=== PATIENT | female | born 1980 | race Caucasian/White ===

== ENCOUNTER 2025-06-10 10:29 | Outpatient (OUT) | payer OTHER, SELFPAY ==
[2025-06-10 10:58] LABS: Hematocrit 47.9 % (36.0-48.0); Hemoglobin 16.2 g/dL (12.0-16.0); Immature Granulocytes Abs Auto 0.02 10^3/uL (0.00-0.03); Immature Granulocytes Pct Auto 0.2 % (0.0-0.5); Lymphocytes Absolute Auto 2.2 10^3/uL (1.2-3.8); Mean Corpuscular HGB Conc 33.8 g/dL (29.9-35.2); Mean Corpuscular Hemoglobin 32.2 pg (26.7-34.0); Mean Corpuscular Volume 95.2 fL (81.0-99.0); Platelet Count 287 10^3/uL (150-450); Red Blood Count 5.03 10^6/uL (4.20-5.40); White Blood Count 8.2 10^3/uL (4.0-11.0)
[2025-06-10 11:09] LABS: Glucose Urine UA >=1000 mg/dL (NEGATIVE)
[2025-06-10 11:34] LABS: Cast Seen? NONE SEEN #/LPF (NONE SEEN); Crystals Seen? None Seen #/HPF (None Seen)
[2025-06-10 11:46] LABS: Alanine Aminotransferase 21 U/L (14-59); Albumin Globulin Ratio 1.1; Albumin Level 4.0 g/dL (3.4-5.0); Alkaline Phosphatase 132 U/L (46-116); Anion Gap 11.2; Aspartate Amino Transferase 12 U/L (15-37); Blood Urea Nitrogen 3.0 mg/dL (7.0-18.0); Calcium 9.6 mg/dL (8.5-10.1); Carbon Dioxide 30.5 mmol/L (21.0-32.0); Chloride 102 mmol/L (98-107); Cholesterol 247 mg/dL (<=200); Estimated GFR (African America >60 (>=60 mL/min/1.73m^2); Estimated GFR (Non-African Ame >60 (>=60 mL/min/1.73m^2); Free T3 1.74 pg/mL (2.18-3.98); Globulin 3.6 g/dL; Glucose 144 mg/dL (74-106); HDL Cholesterol 48 mg/dL (40-60); Potassium 3.7 mmol/L (3.5-5.1); Sodium 140 mmol/L (136-145); Thyroid Stimulating Hormone 0.678 uIU/mL (0.358-3.740); Total Protein 7.6 g/dL (6.4-8.2); Triglycerides 179 mg/dL (<=150); VLDL CHOLESTEROL 35.8 mg/dL
== END 2025-06-10 10:30 | disposition home or self-care (01) ==
LOC: LAB 10:33
PROVIDERS: PCP Family Medicine; Visit Provider Family Medicine
DX: Z00.00 Encounter for general adult medical examination without abnormal findings (principal)
CPT/HCPCS: 36415; 80053; 80061; 81001; 82306; 83036; 84436; 84443; 84481; 85025; 87086

== ENCOUNTER 2025-06-12 17:02 | Outpatient (OUT) | payer OTHER, SELFPAY ==
--- OUTSIDE RECORDS SUMMARY | 2025-06-06 10:45 | XMS_ITS ---
Author Organization [facility] in [place] Address [address] [place] [address] Care Team Providers Care Obstetrical Nurse Name Role Phone Tay Kaur Primary Care Provider Allergies Allergen (clinical drug ingredient) Drug/Non Drug Allergy documented on EMR Reaction Allergy Type Onset Date Status amoxicillin Amoxicillin vomiting Drug Allergy Active REASON FOR VISIT new patient- patient has concerns about med list Medications Medication SIG (Take, Route, Frequency, Duration) Notes Start Date End Date Status Methocarbamol 750 MG 1 tablet Orally 4 times a d ay ActiveTrulicity 3 MG/0.5MLas directed SubcutaneousActivemetFORMIN HCl 1000 MG1 tablet with a meal Orally twice a dayActiveDivalproex Sodium 250 MGas directed Orally twice a dayActiveMetoprolol Tartrate 50 MG1 tablet with food Orally Twice a day; Duration: 90 daysActiveUbrelvy 100 mg 100 mgAs directed Orally -Active OXcarbazepine 600 MG1 tablet Orally dailyActiveQulipta 60mgOne daily Orally DailyActiveAfrin Nasal SprayActiveOmeprazole 20 MG1 capsule 1/2 to 1 hour before morning meal Orally Once a dayActiveQUEtiapine Fumarate 50 MG1 tablet at bedtime Orally Once a day; Duration: 90 daysActiveQUEtiapine Fumarate 400 MG1 tablet Orally Once a day; Duration: 90 daysActivePotassium Chloride ER 10 MEQ1 tablet with food Orally Twice a day; Duration: 90 daysActiveCyanocobalamin 1000 MCG1 tablet Orally Once a day; Duration: 90 daysActiveVitamin D2 50 MCG (1999 UT)1 tablet Orally Once a day; Duration: 90 daysActiveDiclofenac Sodium 75 MG1 tablet as needed Orally Twice a day; Duration: 30 days5ActiveMirtazapine 30 MG 1.5 tablet at bedtime Orally Once a day; Duration: 90 daysActiveFexofenadine- Pseudoephed ER 180-240 MG1 tablet Orally Once a day; Duration: 90 days06/06/2025 ActivelamoTRIgine 200 MG1 tablet Orally Twice a day; Duration: 90 daysActive AllegraActiveJardiance 25 MG1 tablet Orally Once a dayActiveFLUoxetine HCl 40 MG 1 capsule Orally Once a day; Duration: 90 daysActiverOPINIRole HCl ER 8 MG1 tablet Orally Once a day; Duration: 90 daysActivebusPIRone HCl 30 MG1 tablet Orally Twice a day; Duration: 90 daysActiveGlimepiride 4 MG1 tablet with breakfast or the first main meal of the day Orally Once a dayActive Social History Tobacco Use: Social History Observation Description Date Details (start date - stop date) Former Smoker NA - NA Tobacco Control (Standard) Question Answer Notes Tobacco use: Former smoker AUDIT-C (Standard) Question Answer Notes Did you have a drink containing alcohol in the p ast year? Yes How often did you have a drink containing alcohol in the past year?Monthly or less (1 point)How many drinks did you have on a typical day when you were drinking in the past year?3 or 4 drinks (1 point)How often did you have six or more drinks on one occasion in the past year?Less than monthly (1 point)Points3 InterpretationPositive Problems Problem Type SNOMED Code ICD Code Onset Dates Problem Status W/U Status Risk Notes Problem Well adult (839271917) Well adult (Z00.00 ) Activeconfirmed Vital Signs Weight 181.6 lbs 06/06/2025 Height 63 in 06/06/2025 Blood pressure systolic 128 mm Hg 06/06/20 25 Blood pressure diastolic 62 mm Hg 025 BMI 32.17 kg/m2 06/06/2025 Encounters Encounter Location Date Provider Diagnosis [facility] [address] [place] [address] 06/06/2025 Tay Kaur Well adult Z00.0 0 Assessments Encounter Date Diagnosis (ICD Code) Assessment Notes Treatment Notes Treatment Clinical Notes Section Notes 06/06/2025 Well adult (ICD-10 - Z00.00) Plan Of Treatment Medication Medication Name Sig Start Date Stop Date Notes Metoprolol Tartrate 50 MG 1 tablet with food Orally Twice a day; Duration: 90 days QUEtiapine Fumarate 50 MG1 tablet at bedtime Orally Once a day; Duration: 90 daysQUEtiapine Fumarate 400 MG1 tablet Orally Once a day; Duration: 90 days Potassium Chloride ER 10 MEQ1 tablet with food Orally Twice a day; Duration: 90 daysCyanocobalamin 1000 MCG1 tablet Orally Once a day; Duration: 90 daysVitamin D2 50 MCG (2000 UT)1 tablet Orally Once a day; Duration: 90 daysDiclofenac Sodium 75 MG1 tablet as needed Orally Twice a day; Duration: 30 days06/06/2025 Mirtazapine 30 MG1.5 tablet at bedtime Orally Once a day; Duration: 90 days Fexofenadine-Pseudoephed ER 180-240 MG1 tablet Orally Once a day; Duration: 90 days06/06/2025lamoTRIgine 200 MG1 tablet Orally Twice a day; Duration: 90 days FLUoxetine HCl 40 MG1 capsule Orally Once a day; Duration: 90 daysrOPINIRole HCl ER 8 MG1 tablet Orally Once a day; Duration: 90 daysbusPIRone HCl 30 MG1 tablet Orally Twice a day; Duration: 90 days Progress Notes * Mónica MARTEDOB: [birth year] (44 yo F)Acc No.[id number]:06/06/2025 New Patient Patient: Mónica RYAN :?Jai Kaur ([facility]), MDDOB:1980???Age: 44 Y???Sex:FemaleDate:06/06/2025Phone:[phone]:[address] [place], [place] [id number] In:03:37 PM ESTCheck Out:04:32 PM EST Subjective: * Chief Complaints: * N ew patient- patient has concerns about med list * HPI: ???General:?DM? - 90 - 100 when being good - can be over 200 - Dr Glynn HTN - not chekcing at home but is good herer Back pain - taking soma - addig PRN diclofenac GERD - stabel with meds. ???Depression Screening:?PHQ-9?Little interest or pleasure in doing things Several days ?Feeling down, depressed, or hopeless?Several days ?Trouble falling or staying asleep, or sleeping too much?More than half the days ?Feeling tired or having little energy?Several days ?Poor appetite or overeating?Several days ?Feeling bad about yourself or that you are a failure, or have let yourself or your family down?Several days ?Trouble concentrating on things, such as reading the newspaper or watching television?Not at all ?Moving or speaking so slowly that other people could have noticed; or the opposite, being so fidgety or restless that you have been moving arounda lot more than usual?Not at all ?Thoughts that you would be better off orof hurting yourself in some way?Not at all ?Total Score?7 ?Interpretation?Mild Depression * ROS: ???EENT:?hearing changes?denies.?visual changes?denies. non-healing mouth sores?denies.?swollen glands or neck lumps?denies.?hoarseness?denies.?sore throat?denies.?difficulty swallowing?denies.?nose bleeds?denies.?nasal congestion?denies.?ear ache?denies.?ear discharge denies.?ringing in ears?denies.?light sensitivity?denies.?eye pain?denies.?blurring?denies.?eye irritation?denies.?double vision?denies. vision loss?denies.?General/Constitutional:?Sweats:?Denies.?Fatigue?denies.?Sleep proble ms?denies.?Anorexia?denies.?Malaise?denies.?Weight loss?denies. Fatigue or Weakness?denies.?Fever or Chills?denies.?Cardiovascular:?Shortness of Breath w/lying flat?denies.?Lightheadedne ss/dizziness?denies.?Chest tightness/ heavy pressure?denies.?Swelling of legs, a nkles, or feet?denies.?Waking up with shortness of breath?denies.?Chest pain&#16 0;denies.?Palpitations?denies.?Weight gain?denies.?Respiratory:?Chronic or frequent cough?denies.?Coughing up blood&#1 60;denies.?Difficulty breathing?denies.?Productive cough?denies.?Snoring&#1 60;denies.?Shortness of breath that awakens from sleep (PND)?denies.?Chest pain? denies.?Sputum production?denies.?Wheezing?denies.?Musculoskeletal:?Joint pain?denies.?Joint Fluid?denies.?Backpain?denies.?Knee pain?denies.?Neck pain?denies.?Joint Stiffness?denies.?Muscle cramps?denies.?Weakness of muscles?denies.?Arthritis?denies.?Muscle aches?denies.?Pain in shoulder(s)?denies.?Swollen joints?denies.? * Active Problem List Z00.00 Well adult Modified On:06/06/2025W/U Status:confirmed * Medical History: * Surgical History: 3 csections gallbladder and appendix removed 4 knee scopes cyst removed from right ankle carpal tunnel bilateral hysterectomy partial * Hospitalization/Major Diagno stic Procedure: N o Hospitalization History. * Family History: F ather: . M other: alive, diagnosed with Diabetes. 3 brother(s) , 1 sister(s) . 2 son(s) , 1 daughter(s) . . * Social History: ???Tobacco Use:?Tobacco Control (Standard)?Tobacco use:?Former smoker ???Drug/Alcohol:?AUDIT-C (Standard)?Did you have a drink containing alcohol in the past year??Yes ?How often did you have a drink containing alcohol in the past year?? Monthly or less (1 point) ?How many drinks did you have on a typical daywhen you were drinking in the past year??3 or 4 drinks (1 point) ?How often did you have six or more drinks on one occasion in the past year??Less than monthly (1 point) ?Points?3 ?Interpretation?Positive * Medications: T akingAfrin Nasal [place] Anu busPIRone HCl 30 MG Tablet 1 tablet Orally Twice a day Cyanocobalamin 1000 MCG Tablet 1 tablet Orally Once a day Divalproex Sodium 250 MG Tablet Delayed Release as directed Orally twice a day FLUoxetine HCl 40 MG Capsule 1 capsule Orally Once a day Glimepiride 4 MG Tablet 1 tablet with breakfast or the first main meal of the day Orally Once a day Jardiance(Empagliflozin) 25 MG Tablet 1 tablet Orally Once a day lamoTRIgine 200 MG Tablet 1 tablet Orally Twice a day metFORMIN HCl 1000 MG Tablet 1 tablet with a meal Orally twice a day Methocarbamol 750 MG Tablet 1 tablet Orally 4 times a day Metoprolol Tartrate 50 MG Tablet 1 tablet with food Orally Twice a day Mirtazapine 30 MG Tablet 1.5 tablet at bedtime Orally Once a day Omeprazole 20 MG Capsule Delayed Release 1 capsule 1/2 to 1 hour before morning meal Orally Once a day OXcarbazepine 600 MG Tablet 1 tablet Orally daily Potassium Chloride ER 10 MEQ Tablet Extended Release 1 tablet with food Orally Twice a day QUEtiapine Fumarate 400 MG Tablet 1 tablet Orally Once a day QUEtiapine Fumarate 50 MG Tablet 1 tablet at bedtime Orally Once a day Qulipta(Atogepant) 60mg Tablet One daily Orally Daily rOPINIRole HCl ER 8 MG Tablet Extended Release 24 Hour 1 tablet Orally Once a day Trulicity(Dulaglutide) 3 MG/0.5ML Solution Auto- injector as directed Subcutaneous Ubrelvy 100 mg 100 mg tablet As directed Orally - Vitamin D2 50 MCG (2000 UT) Tablet 1 tablet Orally Once a day Medication List reviewed and reconciled with the patientTaking Afrin Nasal [place] Taking Anu Taking busPIRone HCl 30 MG Tablet 1 tablet Orally Twice a day Taking Cyanocobalamin 1000 MCG Tablet 1 tablet Orally Once a day Taking Divalproex Sodium 250 MG Tablet Delayed Release as directed Orally twice a day Taking FLUoxetine HCl 40 MG Capsule 1 capsule Orally Once a day Taking Glimepiride 4 MG Tablet 1 tablet with breakfast or the first main meal of the day Orally Once a day Taking Jardiance(Empagliflozin) 25 MG Tablet 1 tablet Orally Once a day Taking lamoTRIgine 200 MG Tablet 1 tablet Orally Twice a day Taking metFORMIN HCl 1000 MG Tablet 1 tablet with a meal Orally twice a day Taking Methocarbamol 750 MG Tablet 1 tablet Orally 4 times a day Taking Metoprolol Tartrate 50 MG Tablet 1 tablet with food Orally Twice a day Taking Mirtazapine 30 MG Tablet 1.5 tablet at bedtime Orally Once a day Taking Omeprazole 20 MG Capsule Delayed Release 1 capsule 1/2 to 1 hour before morning meal Orally Once a day Taking OXcarbazepine 600 MG Tablet 1 tablet Orally daily Taking Potassium Chloride ER 10 MEQ Tablet Extended Release 1 tablet with food Orally Twice a day Taking QUEtiapine Fumarate 400 MG Tablet 1 tablet Orally Once a day Taking QUEtiapine Fumarate 50 MG Tablet 1 tablet at bedtime Orally Once a day Taking Qulipta(Atogepant) 60mg Tablet One daily Orally Daily Taking rOPINIRole HCl ER 8 MG Tablet Extended Release 24 Hour 1 tablet Orally Once a day Taking Trulicity(Dulaglutide) 3 MG/0.5ML Solution Auto-injector as directed Subcutaneous Taking Ubrelvy 100 mg 100 mg tablet As directed Orally - Taking Vitamin D2 50 MCG (1999) Tablet 1 tablet Orally Once a day Medication List reviewed and reconciled with the patient * Allergies: A moxicillin: vomitingno[Allergies Verified] Objective: * Vitals: W t:181.6lbs, Ht: 63 in, BP:128/62mm Hg, BMI:32.17Index, Ht-cm: 160.02 cm, Wt-k.37 kg. * Examination: ???Physical Exam: ?GENERAL:?well developed, well nourished, in no acute distress.?HEAD:?normocephalic/atraumatic.?EYES:?pupils equal, round and reactive to light, conjunctivae and sclerae normal.?EARS:?no deformity or lesion of external ear, canals and TM appear normal bilaterally, TM's intact, not inflamed with normal light reflex, hearing grossly normal to conversational speech.?NOSE:?no deformity, discharge, inflammation, or lesions. ?MOUTH:?mucous membranes moist, normal oropharynx and posterior pharynx without lesions or exudates, tongue normal, dentition normal.?NECK:?neck supple, no masses or palpable cervical nodes, trachea midline, thyroid without nodules, masses, tenderness, or enlargement.?CHEST:?no chest wall deformity, no chest wall tenderness. ?LUNGS:?normal respiratory effort and clear to auscultation, no wheezes, rales, or rhonchi, good air exchange.?CARDIO:?regular rate and rhythm, normal S1 and S2, nor murmur, rub, or gallop.?PULSES:?normal capillary refill.?ABDOMEN:?soft, non-distended, non-tender, no masses.?MUSCULOSKELETAL:?no deformity or scoliosis noted, normal range of motion, joints normal, no erythema, edema, effusion, or ecchymosis.?EXTREMITY:?no clubbing, cyanosis, edema, or deformity withnormal ROM in both upper and lower bilateral extremities.?NEUROLOGIC:?grossly normal.?SKIN:?no rashes, ulcerations, or suspicious lesions.?LYMPH NODES:?no cervical adenopathy, nodes normal.?MENTAL STATUS:?alert and oriented x3, normal mood and affect.? Assessment: * Assessment: 1.?Well adult - Z00.00 (Primary)??? Plan: * Treatment: Start Diclofenac Sodium Tablet Delayed Release, 75 MG, 1 tablet as needed, Orally, Twice a day, 30 days, 60 Tablet, Refills 11;?Refill Metoprolol Tartrate Tablet, 50 MG, 1 tablet with food, Orally, Twice a day, 90 days, 180 Tablet, Refills 3;?Refill rOPINIRole HCl ER Tablet Extended Release 24 Hour, 8 MG, 1 tablet, Orally, Once a day, 90 days, 90 Tablet, Refills 3;?Refill busPIRoneHCl Tablet, 30 MG, 1 tablet, Orally, Twice a day, 90 days, 180 Tablet, Refills 3;?Refill FLUoxetine HCl Capsule, 40 MG, 1 capsule, Orally, Once a day, 90 days, 90 Capsule, Refills 3;?RefilllamoTRIgine Tablet, 200 MG, 1 tablet, Orally, Twice a day, 90 days, 180 Tablet, Refills 3;?Refill Mirtazapine Tablet, 30 MG, 1.5 tablet at bedtime, Orally, Once a day, 90 days, 135 Tablet, Refills 3;?Refill Vitamin D2 Tablet, 50 MCG (2000 UT), 1 tablet, Orally, Once a day, 90 days, 90 Tablet, Refills 3;?Refill Potassium Chloride ER Tablet Extended Release, 10 MEQ, 1 tablet with food, Orally, Twice a day, 90 days, 180 Tablet, Refills 3;?Refill QUEtiapine Fumarate Tablet, 50 MG, 1 tablet at bedtime, Orally, Once a day, 90 days, 90 Tablet, Refills 3;?Refill QUEtiapine Fumarate Tablet, 400 MG, 1 tablet, Orally, Once a day, 90 days, 90 Tablet, Refills 3;?Start Fexofenadine- Pseudoephed ER Tablet Extended Release 24 Hour, 180-240 MG, 1 tablet, Orally, Once a day, 90days, 90 Tablet, Refills 3;?Refill Cyanocobalamin Tablet, 1000 MCG, 1 tablet, Orally, Once a day, 90 days, 90 Tablet, Refills 3.?? * Procedure Codes: * Preventive Medicine: ??Screenings/Counseling:?BMI ACTION PLAN?Above Normal BMI Follow-up?Dietary management education, guidance, and counseling * * Sign off status: CompletedVisit Status:?CHK (Check Out) true * Provider: Vladislav Kaur ([facility])MD Date: 1 08/07/2024 Generated for Printing/Faxing/eTransmitting on:?06/12/2025 05:10 PM EST History and Physical Notes * HPI (History of Present Illness) CategorySub-CategoryDetailNotesCategory NotesDepression ScreeningPHQ-9Little interest or pleasure in doing things: Several daysFeeling down, depressed, or hopeless: Several daysTrouble falling or staying asleep, or sleeping too much: More than half the daysFeeling tired or having little energy: Several daysPoor appetite or overeating: Several daysFeeling bad about yourself or that you are a failure, or have let yourself or your family down: Several daysTrouble concentrating on things, such as reading the newspaper or watching television: Not at allMoving or speaking so slowly that other people could have noticed; or the opposite, being so fidgety or restless that you have been moving around a lot more than usual: Not at allThoughts that you would be better off or of hurting yourself in some way: Not at allTotal Score: 7Interpretation: Mild DepressionGeneral DM - 90 - 100 when being good - can be over 200 - Dr Glynn HTN - not chekcing at home but is good herer Back pain - taking soma - addig PRN diclofenac GERD - stabel with meds Examination CategorySub-CategoryDetailNotesCategory NotesPhysical ExamGENERAL:well developed, well nourished, in no acute distressHEAD:normocephalic/atraumatic EYES:pupils equal, round and reactive to light, conjunctivae and sclerae normal EARS:no deformity or lesion of external ear, canals and TM appear normal bilaterally, TM's intact, not inflamed with normal light reflex, hearing grossly normal to conversational speechNOSE:no deformity, discharge, inflammation, or lesionsMOUTH:mucous membranes moist, normal oropharynx and posterior pharynx without lesions or exudates, tonguenormal, dentition normalNECK:neck supple, no masses or palpable cervical nodes, trachea midline, thyroid without nodules, masses, tenderness, or enlargementCHEST:no chest wall deformity, no chest wall tendernessLUNGS:normal respiratory effort and clear to auscultation, no wheezes, rales, or rhonchi, good air exchangeCARDIO:regular rate and rhythm, normal S1 and S2, nor murmur, rub, or gallopPULSES:normal capillary refillABDOMEN:soft, non-distended, non-tender, no massesRECTAL:MUSCULOSKELETAL:no deformity or scoliosis noted, normal range of motion, joints normal, no erythema, edema, effusion, or ecchymosisEXTREMITY:no clubbing, cyanosis, edema, or deformity with normal ROM in both upper and lower bilateral extremitiesNEUROLOGIC:grossly normalSKIN:no rashes, ulcerations, or suspicious lesionsLYMPH NODES:no cervical adenopathy, nodes normalMENTAL STATUS:alert and oriented x3, normal mood and affect
--- OUTSIDE RECORDS SUMMARY | 2025-06-06 11:25 | XMS_ITS ---
Author Organization [facility] in [place] Address [address] [place] [address] Care Team Providers Care Operations Dispatcher Name Role Phone Tay Kaur Primary Care Provider Results Component Value Reference Range Notes GLYCOHEMOGLOBIN A1C Reviewed date:06/10/2025 01:01:20 PM Interpretation: Performing Lab: Notes/Report: [facility] , Glycohemoglobin A1C 7.0 4.5-6.2 % ADA RECOMMENDED LIMIT 4.0 - 6.0 ADA THERAPEUTIC TARGET < 7.0 ACTION SUGGESTED > 7.0 Estimated Average Glucose 154 Performing Lab:see noteML - [facility] LB REASON FOR VISIT Labs- Encounters Encounter Location Date Provider Diagnosis [facility] [address] [place] [address] 06/06/2025 Tay Kaur Well adult Z00.0 0 Assessments Encounter Date Diagnosis (ICD Code) Assessment Notes Treatment Notes Treatment Clinical Notes Section Notes 06/06/2025 Well adult (ICD-10 - Z00.00) Plan Of Treatment Pending Test Test Name Order Date UA (URINALYSIS, COMPLETE) 06/06/2025 COMPREHENSIVE METABOLIC PROFILE WITH GFR 06/06/2025 OCCULT BLOOD, FECAL, IMMUNOASSAY 025 CBC W/AUTO DIFF 06/06/2025 CULTURE URINE 06/06/2025 THYROID PANEL (T4/TSH/FREE T3) 5 Vitamin D 06/06/2025 Lipid Panel 06/06/2025 Progress Notes * Mónica MARTEDOB: 9 (45 yo F)Acc No.[id number]:06/06/2025 Patient:?Mónica MARTE :1980???Age:44 Y???Sex:FemalePhone:[phone] Address:[address] [place] [address], [address] Subjective: * Chief Complaints: * L abs- * Medical History: * Surgical History: * Hospitalization/Major Diagno stic Procedure: * Medications: Objective: * Vitals: * Physical Examination: ??? Assessment: * Assessment: 1.?Well adult - Z00.00 (Primary)??? Plan: * Treatment: ?LAB: UA (URINALYSIS, COMPLETE) ?LAB: COMPREHENSIVE METABOLIC PROFILE WITH GFR ?LAB: OCCULT BLOOD, FECAL, IMMUNOASSAY ?LAB: CBC W/AUTO DIFF ?LAB: CULTURE URINE ?LAB: GLYCOHEMOGLOBIN A1C ?LAB: THYROID PANEL (T4/TSH/FREE T3) ?LAB: Vitamin D ?LAB: Lipid Panel * Procedure Codes: * true * Date:?Generated for Printing/Faxing/eTransmitting on:?06/12/2025 05:09 PM EST
--- OUTSIDE RECORDS SUMMARY | 2025-06-10 07:59 | XMS_ITS ---
Author Organization [facility] in [place] Address [address] [place] [address] Care Team Providers Care Horse Shoer Name Role Phone Tay Kaur Primary Care Provider REASON FOR VISIT review labs Problems Problem Type SNOMED Code ICD Code Onset Dates Problem Status W/U Status Risk Notes Problem Hypercholesterolemia (42228435) Hyperchol esterolemia (E78.00) ActiveconfirmedProblemHypothyroidism (54135232)Hypothyroidism (E03.9)Active confirmed Encounters Encounter Location Date Provider Diagnosis [facility] [address] [place] [address] 06/10/2025 Tay Kaur Hypothyroidism E03.9 and Hypercholesterolemia E78.00 Assessments Encounter Date Diagnosis (ICD Code) Assessment Notes Treatment Notes Treatment Clinical Notes Section Notes 06/10/2025 Hypothyroidism (ICD-10 - E03.9) 06/10/2025Hypercholesterolemia (ICD-10 - E78.00) Plan Of Treatment Pending Test Test Name Order Date LIPID PROFILE 06/10/2025 LIVER PROFILE 06/10/2025 THYROID PANEL (T4/TSH/FREE T3) Progress Notes * Mónica MARTEDOB: [birth year] (45 yo F)Acc No.[id number]:06/10/2025 Patient:?Mónica MARTE :1980???Age:45 Y???Sex:FemalePhone:[phone] Address:[address] [place] [address], [place], [address] Subjective: * Chief Complaints: * R eview labs * Medical History: * Surgical History: * Hospitalization/Major Diagno stic Procedure: * Medications: Objective: * Vitals: * Physical Examination: ??? Assessment: * Assessment: 1.?Hypothyroidism - E03.9 (Primary)???2.?Hypercholesterolemia - E78.00 ?? Plan: * Treatment: ?LAB: THYROID PANEL (T4/TSH/FREE T3)* 1 month 2.?Hypercholesterolemia?LAB: LIPID PROFILE* 3 month ?LAB: LIVER PROFILE* 3 month * Procedure Codes: * true * Date:?Generated for Printing/Faxing/eTransmitting on:?06/12/2025 05:09 PM EST
--- OUTSIDE RECORDS SUMMARY | 2025-06-10 19:29 | XMS_ITS | Continuity of Care Document ---
Author Organization [facility] Address [address] [place] [address] Phone Care Team Providers Care Bushel Girl Name Role Phone Tawanda Alexander MD Primary Care Provider Dinah Saldaña APRN Attending Provider Anitha Falcon APRN Attending Provider [phone] Jai Kaur MD Attending Provider Care Teams Patient Care Team Team Status: Active Member Role/Relationship Status Dates Tawanda Alexander MD Primary Care Provider Active Visit Care Team Team Status: Inactive Member Role/Relationship Status Dates Tawanda Alexander MD Primary Care Provider Active Start: April 06, 2025 End: April 06, 2025Aly Mills ProviderActiveStart: April 06, 2025 End: April 06, 2025 Visit Care Team Team Status: Inactive Member Role/Relationship Status Dates Tawanda Alexander MD Primary Care Provider Active Start: April 13, 2025 End: April 13, 2025Aly Mills ProviderActiveStart: April 13, 2025 End: April 13, 2025 Visit Care Team Team Status: Inactive Member Role/Relationship Status Dates Tawanda Alexander MD Primary Care Provider Active Start: May 20, 2025 End: May 20Aly Barney ProviderActiveStart: May 20, 2025 End: May 20, 2025 Patient Care Team Team Status: Inactive Member Role/Relationship Status Dates Jai Kaur MD Attending Provider Active Sta rt: June 10, 2025 End: June 10, 2025 Chief Complaint and Reason for Visit Chief Complaint Admit Date Right ear laceration April 06, 2025 5 :50pm suture removal April 13, 2025 1 1:29am Sore throat, ear pain May 20 9:27am Reason for Visit Admit Date Laceration of external ear April 06, 2025 5:50pm Laceration of neck April 06, 2025 5: 50pm Visit for suture removal April 13, 2 025 11:29am Pharyngitis May 20, 2025 9:27am Sore throat May 20, 2025 9:27am Allergies, Adverse Reactions, Alerts Allergen Type Severity Reaction Last Updated Verified Status amoxicillin Allergy Unknown Vomiting May 20, 2025 10:11am Yes Active clavulanic acid Allergy Unknown Vomiting May 20, 2025 10: 11am Yes Active Social History Smoking Status Status Start Date End Date Date of Observa tion Never smoked tobacco (finding) May 20, 2025 10:19am Observation Status Observation Response Date of Response Legal Sex Female (finding) Sex Assigned At BirthFemaleDecember 1979 Problems Active Problems Problem Diagnosis/Recorded Date Onset Date Status C omments Fibromyalgia August 25, 2017 6:11pm Unknown Active Visit for suture removalOctober 2024 12:02pmUnknownActivePharyngitis May 20, 2025 11:03amUnknownActiveLaceration of external earOctober 2024 10:11amUnknownActiveLaceration of neckOctober 2024 10:10amUnknown ActiveInactive/Resolved Problems Problem Diagnosis/Recorded Date Onset Date Status C omments Low back pain August 25, 2017 6:11pm Unknown Resolv ed Problem List clean-up per request of Phys. EHR Cmte Severe major depression August 23, 2017 1:06pm Unknown Resolved Probl em List clean-up per request of Phys. EHR Cmte Severe major depression September 03, 2017 4:52pm Unknown Resolved Problem L ist clean-up per request of Phys. EHR Cmte Medications Medication Status Dose Units Route Directions Qty Days Refills S tart Date Stop Date End Date Reason(s) Instructions Adherence Trazodone 50 mg tablet Discontinued 50 MG PO Bedt katya August 23, 2017 [facility] 10:17amOxycodone-Acetaminophen 10-325 mg fxyzuhNeyfyhswcdkc4IOGOBE7N as needed for PainFebruary 2017 12:[facility] 10:36amMetformin 1,000 mg kgihhzHfnflc3150WPJOLlkuw daily August 23, 2017 12:00amUnknownGlimepiride 4 mg lwqscvMchfyc4JSSEUoytf daily August 23, 2017 12:00amUnknownClonazepam 2 mg wafknvCkdqeqorzugm2DDZOBgddl August 23, 2017 12:00[facility] 2024 5:06pmMetoprolol Tartrate 50 mg oerghrEcfdsb62EQVNOeqid dailyFebruary 2017 12:00amUnknownBupropion Hcl 300 mg tablet extended release 24 yuPxregqihqbon549GBFOBfxinUvufzjrz 2017 12:00[facility] 2024 5:05pmBupropion Hcl 150 mg tablet extended release 24 lmEdtcyhofyxbf888UCWVNsnhtQuavbnqs 2017 12:00[facility] 2024 5:05pm Cholestyramine-Aspartame 4 gram xaalnoWfofejswdghh4xnwfd/dayPOTwice daily as needed for Gastrointestinal Spasms Or CrampingFebruary 2017 12:00[facility] 2024 5:05pmwith apple juiceMilnacipran (Savella) 25 mg tabletDiscontinued August 23, 2017 12:00amFebruary 2017 11:04amMilnacipran 25 mg tablet Uwguca38EDHISjkeh dailyFebruary 2017 12:00amUnknownPregabalin 150 mg zotigqqYzqqqehigguj662JSLUGzqweluTjxqxdyb 2017 12:00[facility] 2024 5:07pmPerphenazine 2 mg XicbgdExrzwpcryitw9BHCXDdupj times zoqnc1601Vjkag 2017 12:00[facility] 2024 10:15amMilnacipran (Savella) 50 mg Tablet Ocuqvpuajgjo50ESOXFcxva umusc060Wwxwa 2017 12:00amNovember 2024 10:15amDoxycycline Hyclate 100 mg iizusfnFxyujtntikwh014TFWEVzobx jfiok74159 April 12, 2025 11:[facility] 10:13amFluconazole 150 mg tablet Bwhdddvumzpx988YFNYZ0H752Zssqrtr 14th, 2025 11:00May 20, 2025 10:14am may repeat x 1 in 3 days if neededMirtazapine 30 mg tabletDiscontinuedMGPO April 05, 2025 11:00May 20, 2025 10:15amOxcarbazepine 600 mg tablet DiscontinuedMGPOVa Medical Center2024 11:002024 10:18am Ergocalciferol (Vitamin D2) 1,250 mcg (50,000 unit) capsuleDiscontinuedPOOctflaget memorial hospital 2024 11:00May 20, 2025 10:18amPotassium Chloride 10 mEq tablet,ER particles/crystalsDiscontinuedMEQPOOctflaget memorial hospital 2024 11:00May 20, 2025 10:18amFexofenadine-Pseudoephedrine (Anu-D 24 Hour) 180-240 mg tablet extended release 24 hrDiscontinuedTABPOOctflaget memorial hospital 2024 11:002024 10:18amFluoride (Sodium) 1.1 % pasteActiveMyMich[facility] 2024 11:00pm UnknownQuetiapine 400 mg tablet extended release 24 hrDiscontinuedMGPOOctflaget memorial hospital 2024 11:00May 20, 2025 10:18amRopinirole 8 mg tablet extended release 24 hrDiscontinuedMGPOOctflaget memorial hospital 2024 11:002024 10:18amEmpagliflozin (Jardiance) 25 mg tabletDiscontinuedMGPOOctflaget memorial hospital 2024 11:002024 10:18amDulaglutide (Trulicity) 3 mg/0.5 mL pen injectorDiscontinuedMGSUBCUTOctflaget memorial hospital 2024 11:00May 20, 2025 10:18am Atogepant (Qulipta) 60 mg tabletDiscontinuedMGPOOctober 2024 11:00pm May 20, 2025 10:18amFluconazole 150 mg dvhjlvUibebkgpugxd186OCWSLddc11 April 05, 2025 11:00pmMay 20, 2025 10:14amCephalexin 500 mg capsule Rwalotjjnhxi015HAKAYtcke times fisro8664Yfhrceq 7th, 2025 11:00pmMay 20, 2025 10:18amAtogepant (Qulipta) 60 mg xplsneHjzdhf50KHOEHbvlkRwsnrknv 2024 10:12amUnknownDulaglutide (Trulicity) 3 mg/0.5 mL pen oemcqtbwWeeytp5TCQBOVQW every weekMay 20, 2025 10:13amUnknownEmpagliflozin (Jardiance) 25 mg zbxqplQjjtws38YLKDIikjNvosxfap 2024 10:13amUnknownErgocalciferol (Vitamin D2) 1,250 mcg (50,000 unit) bbxwuvmWypehx90466PXMLRXjgqed weekMay 20, 2025 10:13amUnknownFexofenadine-Pseudoephedrine (Anu-D 24 Hour) 180-240 mg tablet extended release 24 nxUjomdt0CDFRQUiplaSnimokgl 2024 10:14amUnknown Oxcarbazepine 600 mg icbzafUxlctc071AZZLMpvxDzpusztw 2024 10:15amUnknown Potassium Chloride 10 mEq tablet,ER particles/eajocockBqpdyt82LJAPETxvyBnygnpmv 2024 10:15amUnknownQuetiapine 400 mg tablet extended release 24 hrActive 800MGPODailyCasey County Hospital 2024 10:15amUnknownRopinirole 8 mg tablet extended release 24 zeWeiedw6RRKUPrnwf at bedtimeCasey County Hospital 2024 10:16amUnknown Prednisone 20 mg hkaqssUnjqrt13VZIDUwpbHqrmcwox 2024 12:00amUnknown Cephalexin 500 mg mwkhxqgDnupbt286RWRCGfjxg dailyD[facility] Hospital2024 10:11am UnknownQuetiapine (Seroquel) 50 mg yelplkBefgus76EGLUTccsh times dailyDuke [facility] Hospital2024 12:00amUnknownMirtazapine 30 mg fbgzplNwguxj06MEXJGvxiu at bedtime May 20, 2025 12:00amUnknownBuspirone 30 mg afjrdsLwumpb69RAYYJopxn daily May 20, 2025 12:00amUnknownOndansetron 4 mg tablet,disintegratingActive4 MGPOEvery 8 hours as needed for nausea and hilvnvju2122Wjsenadr 21st, 2025 12:00amUnknownAmoxicillin-Pot Clavulanate 875-125 mg zvpiqxFntitt7LBGKCJvtmj lyjjj08995Ohwuocmv2024 12:00amUnknown Immunizations Immunization Event Date Not Given Reason Dose Number [employer] Lot Number Reason(s) Given Vaccine Information Statement (VIS) Detail Administration Location COVID-19 mRNA, Comirnaty ([employer]) September 12 COVID-19 mRNA, Comirnaty ([employer])October 03OVID-19 mRNA, Comirnaty ([employer])June 26, 2021Quadrivalent InfluenzaFebruary 2017[facility] Vacc[facility] Quadrivalent March 17, 2020Tetanus, Diphtheria, Pertussis (Tdap)April 06, 2025 [id number] [place] Procedures Procedure Date Performed Status Urine Culture June 10, 2025 active Mononucleosis (POC) May 20, 2025 complete d Quick Strep (POC) May 20, 2025 completed Relevant Diagnostic Tests and/or Laboratory Data Microbiology Results Procedure Source Result Collection Date/Time Result Date/Time Result Comment Performing Site Quick Strep (POC) Throat May 20, 2025 10:26amNovemb2024 10:32amMononucleosis (POC)Blood, OtherMay 20, 2025 10:43amNove2024 10:54am Vital Signs Vital Reading Result Reference Range Collection Date/Time Height 63 [in_i] April 06, 2025 5:43xhCpontu94.18 kgOct2024 5:01pmBody Temperature 98.4 [degF]97.6-99.0April 06, 2025 5:01pmHeart Breg617 /skf75-175Myyfzic 2024 5:01pmRespiratory rate18 /vqd22-70Wxyznwz 2024 5:01pmOxygen saturation by Pulse wrqyracc42 %95-100Oct2024 5:01pmBP Xiplkqsn233 mm[Hg]100-140Oct2024 5:01pmBP Xngypltit53 mm[Hg]60-100Oct2024 5:01pmBMI (Body Mass Index)33.6 kg/d1Egetukk2024 5:03lsNfkvin50 [in_i]April 13, 2025 10:31zzUfpqyb90.18 kgApril 13, 2025 10:41amBody Yazeeuwtamp63 [degF]97.6-99.0Oct2024 10:41amHeart Sogl830 /ghd78-820 April 13, 2025 10:41amRespiratory rate18 /smo02-38XkcayivApril 13, 2025 10:41am Oxygen saturation by Pulse %95-100Oct2024 10:41amBP Trumtdwl650 mm[Hg]100-140April 13, 2025 10:41amBP Mwqyjflya48 mm[Hg]60-100 April 13, 2025 10:41amBMI (Body Mass Index)33.6 kg/c5Qaeutzm2024 10:31tiWkubnw57 [in_i]May 20, 2025 10:13foUjyvhd65.48 kgMay 20, 2025 10:08amBody Chgmwglvrkv58.0 [degF]97.6-99.0May 20, 2025 10:08amHeart Ftht133 /sqz42-737Zslfahvw2024 10:08amRespiratory rate18 /qgn52-61 May 20, 2025 10:08amOxygen saturation by Pulse qdisdrbq11 %95-100May 20, 2025 10:08amBP Kqfyhfpt460 mm[Hg]100-140May 20, 2025 10:08amBP Bdpgtnnqc63 mm[Hg]60-100May 20, 2025 10:08amBMI (Body Mass Index)33.0 kg/o8NattlluiMay 20, 2025 10:08am Advance Directives Advance Directive Response Recorded Date/ Time Advance Directives No July 4:06am Insurance Providers Guarantor Mónica Daley Address [address] [place] [id number] Info.Home Phone: Payer Group Member ID Coverage Type Subscriber Relationship to Subscriber Effective Date Expiration Date MMO Id: [id number] Barrett , D Id: [id number] [facility] [address] [facility] [address] Home Phone: Encounters Encounter Location(s) Arrival/Admit Date Discharge/Departure Date Discharge/Departure Disposition Provider(s) Departed Physician/ Provider Office Visit -[facility] April 06, 2025 5:50pm April 06, 2025 7:17pm Discharged to home care or self care (routine discharge) Gigi Vela APRN Departed Physician/ Provider Office Visit -[facility] April 13, 2025 11:29am April 13, 2025 12:10pm Discharged to home care or self care (routine discharge) Gigi Vela APRN Departed Physician/ Provider Office Visit -[facility] May 20, 2025 9:27am May 20, 2025 11:05am Discharged to home care or self care (routine discharge) Gigi Isaac APRN Departed Referred -[facility] June 10, 2025 10:35am June 10, 2025 10:36am Discharged to home care or self care (routine discharge) Gigi Christianson MD Recent Diagnosis Onset Date Admit Date Laceration of external ear Unknown Octob er 2024 5:50pm Laceration of neck Unknown April 06, 2025 5:50pm Visit for suture removal Unknown April 13, 2025 11:29am Pharyngitis Unknown May 20, 2 025 9:27am Sore throat Unknown May 20, 2 025 9:27am Assessments Diagnosis Onset Date Resolution Status Admit Date Laceration of external ear acuteOctober 2024 5:50pmLaceration of neckacuteOctober 2024 5:50pm Visit for suture removalacuteOctober 2024 11:29amPharyngitisacuteNovember 2024 9:27amSore throatnoneactiveNov2024 9:27am Plan of Treatment Author Dinah Saldaña [facility] CenterAuthored[facility] 2024 12:04pmSutures removed without issues. Inner portion of external ear laceration with some delay in healing as it had to be repaired with Surgiseal. Patient has tenderness to area, mild surrounding erythema, mild to moderate serous yellow drainage/crusting. Finishing Keflex today. Will have her start doxycycline starting tomorrow to ensure it heals without issues. Patient is diabetic. Continue to keep area clean with soap and water. Closely monitor area. Follow-up with PCP if any significant increase in drainage, erythema, swelling or pain. Patient verbalized understanding. Author Dinah Saldaña [facility] CenterAuthoredOctober 2024 10:19amLaceration repaired per procedure documentation. Patient tolerated well. Areas of abrasions cleaned with betadine and saline, antibiotic ointment applied. Pt advised to keep area clean with soap and water, may continue use of antibiotic ointment. Tetanus vaccine updated in office. Given pt has history of diabetes and nature of injury, will treat with Keflex. Patient advised to monitor area and advised to follow up if any purulent drainage, erythema or new onset fever. Return in approximately 7 days for removal of sutures. Laceration repaired per procedure documentation. Patient tolerated well. No injury to ear canal or TM. Pt advised to keep area clean with soap and water, may continue use of antibiotic ointment. Tetanus vaccine updated in office. Given pt has history of diabetes and nature of injury, will treat with Keflex. Patient advised to monitor area and advised to follow up if any purulent drainage, erythema or new onset fever. Return in approximately 7 days for removal of sutures. Author Anitha Falcon [facility] CenterAuthoredNovember 2024 11:53amPatient is a pleasant, cooperative 44-year-old female who presents to urgent care with the above complaints. She appears alert, nontoxic. Afebrile. Mildly tachycardic at 108 otherwise vitals normal. Physical exam findings as noted above. Patient was swabbed for strep during visit which was negative. She was swabbed for mononucleosis via POC which was negative. She was given 10 mg p.o. dexamethasone here for the pharyngitis. She is to Rest. Push fluids. Take qmds-fjk-aahjyyq Tylenol and Motrin as needed for any fever or discomfort. Use warm salt water gargles, sore throat lozenges, tea with honey to help the sore throat. Stop the Keflex at this time. Start the Augmentin 1 tablet by mouth twice a day for the next 10 days. Take the Zofran 4 mg ODT every 8 hours as needed for nausea and vomiting. Use ewmf-reb-tpuxbot Monistat for any yeast infection accompanied with antibiotic use. Follow-up with primary care provider in the next 3 to 5 days. Go to the ER immediately if you develop any worsening fever not responding to Tylenol or Motrin, worsening sore throat, chest pain, palpitations, shortness of breath, difficulty breathing, weakness. Patient verbalizes understanding is agreeable to plan of care at this time. Future Tests Future scheduled test information is unavailable Pending Tests Test Name Ordered Date Scheduled Date Urine Culture June 10, 2025 10:35am Future Visits Future appointment information is unavailable Future Procedures Procedure Name Ordered Date Scheduled Date Urine Culture June 10, 2025 1:09pm Decem 2024 10:35am Future Medications Future medication information is unavailable Patient Instructions Instruction Admit Date Sore throat in adults - ED discharge ins tructions May 20, 2025 9:27am
--- OUTSIDE RECORDS SUMMARY | 2025-06-12 17:10 | XMS_ITS | Patient Health Record ---
Author Organization [facility] in [place] Address [address] [place] [address] Care Team Providers Care Spool Cleaner Hand Name Role Phone Tay Kaur Primary Care Provider Allergies Allergen (clinical drug ingredient) Drug/Non Drug Allergy documented on EMR Reaction Allergy Type Onset Date Status amoxicillin Amoxicillin vomiting Drug Allergy Active Results Component Value Reference Range Notes GLYCOHEMOGLOBIN A1C Reviewed date:06/10/2025 01:01:20 PM Interpretation: Performing Lab: Notes/Report: [facility] , Glycohemoglobin A1C 7.0 4.5-6.2 % > 7.0 ADA THERAPEUTIC TARGET < 7.0 ACTION SUGGESTED ADA RECOMMENDED LIMIT 4.0 - 6.0 Estimated Average Glucose 154 Performing Lab:see noteML - [facility] LBCBC AUTO DIFF Reviewed date:06/10/2025 01:01:20 PM Interpretation: Performing Lab: Notes/Report: [facility] ,White Blood Count8.24.0-11.0 10 3/uLRed Blood Count5.034.20-5.40 10 6/uL Hhmksitaef57.212.0-16.0 g/cFOlpzlmkhdt07.936.0-48.0 %Mean Corpuscular Skaqly64.2 81.0-99.0 fLMean Corpuscular Txskdamkoa27.226.7-34.0 pgMean Corpuscular HGB Conc 33.829.9-35.2 g/dLRed Cell Distribution Width13.311.0-15.0 %Platelet Isnzg908 150-450 10 3/uLMean Platelet Yiudbv86.89.5-13.5 fLNeutrophils Percent Auto65.3 43.0-75.0 %Lymphocytes Percent Auto26.620.5-60.0 %Monocytes Percent Auto6.51.7- 12.0 %Eosinophils Percent Auto1.20.9-7.0 %Basophils Percent Auto0.20.2-2.0 % Immature Granulocytes Pct Auto0.20.0-0.5 %Neutrophils Absolute Auto5.41.4-6.5 10 3/uLLymphocytes Absolute Auto2.21.2-3.8 10 3/uLMonocytes Absolute Auto0.50.3-0.8 10 3/uLEosinophils Absolute Auto0.10.0-0.7 10 3/uLBasophils Absolute Auto0.00.0- 0.1 10 3/uLImmature Granulocytes Abs Auto0.020.00-0.03 10 3/uLPerforming Lab:see noteML - [facility] LBFREE T3 Reviewed date:06/10/2025 01:01:20 PM Interpretation: Performing Lab: Notes/Report: [facility] ,Free T31.742.18-3.98 pg/mLPerforming Lab:see noteML - [facility] LB LIPID PROFILE Reviewed date:06/10/2025 01:01:20 PM Interpretation: Performing Lab: Notes/Report: [facility] ,Uuwlqpjvjztqg655<=150 mg/lBYwedchwvixw038<=200 mg/dLHDL Fzmxvrsrsoz1092-87 mg/dL > or =60 mg/dl - LOW CARDIOVASCULAR RISK <40 mg/dl - HIGH CARDIOVASCULAR RISK LDL Cholesterol Osxjxoutur246.0 <100 mg/dl OPTIMAL 100-129 mg/dl NEAR OR ABOVE OPTIMAL >190 mg/dl VERY HIGH 130-159 mg/dl BORDERLINE HIGH 160-189 mg/dl HIGH VLDL NYBTJNFGSOG46.8Chol HDL Ratio5.1 4.4 - 7.1 AVERAGE RISK 7.1 - 11.0 MODERATE RISK 3.3 - 4.4 LOW RISK >11.0 HIGH RISK Performing Lab:see noteML - [facility] LBPROF 14(COMP METB) Reviewed date:06/10/2025 01:01:20 PM Interpretation: Performing Lab: Notes/Report: [facility] ,Giuens280076-548 mmol/LPotassium3.73.5-5.1 mmol/LEbwgqoyl62210-418 mmol/LCarbon Lgwhrzs92.521.0-32.0 mmol/LAnion Gap11.4Lmwdyoh39966-617 mg/dLBlood Urea Nitrogen3.07.0-18.0 mg/dLCreatinine0.610.55-1.02 mg/dLEstimated GFR ( Oneyda>60>=60 mL/min/1.73m 2Estimated GFR (Non- Joaquina>60>=60 mL/min/1.73m 2BUN Creatinine Ratio4.4Clxwvre3.68.5-10.1 mg/dLBilirubin Total0.40.2-1.0 mg/dL Aspartate Amino Hwliluldkel6244-90 U/LAlanine Mxuxlzefxvwtbgsr6980-87 U/L Alkaline Ryhrryttsor72098-924 U/LTotal Protein7.66.4-8.2 g/dLAlbumin Level4.0 3.4-5.0 g/dLGlobulin3.6Albumin Globulin Ratio1.1Performing Lab:see note - [facility] LBT4 Reviewed date:06/10/2025 01:01:20 PM Interpretation: Performing Lab: Notes/Report: [facility] ,T4 Thyroxine4.804.80-13.90 ug/dLPerforming Lab:see note - [facility] LBTSH Reviewed date:06/10/2025 01:01:20 PM Interpretation: Performing Lab: Notes/Report: [facility] ,Thyroid Stimulating Hormone0.6780.358-3.740 uIU/mLPerforming Lab:see note - [facility] LBVITAMIN D 25 [place] Reviewed date:06/10/2025 01:01:20 PM Interpretation: Performing Lab: Notes/Report: [facility] ,Vitamin D44.9 20-<30 ng/mL Vit D insufficient 30-100 ng/mL Vit D sufficient <20 ng/mL Vit D deficient >100 ng/mL Potential Toxicity Performing Lab:see note - [facility] LBUA RANDOM W or MICROSCOPIC Reviewed date:06/10/2025 01:01:20 PM Interpretation: Performing Lab: Notes/Report: [facility] ,Color UrineLT. YELLOWYELLOWClarity UrineCLEARCLEARSpecific [place] Urine1.020 1.005-1.025pH Urine5.55.0-9.0Protein UrineNEGATIVENEG/TRACE mg/dLGlucose Urine UA>=1000NEGATIVE mg/dLBilirubin UrineNEGATIVENEGATIVEKetones UrineNEGATIVE NEGATIVE mg/dLBlood UrineNEGATIVENEGATIVENitrite UrineNEGATIVENEGATIVE Urobilinogen Urine0.20.2-1.0 EU/dLLeukocyte Esterase UrineNEGATIVENEGATIVEWBC UrineNONE SEENNONE SEEN #/HPFRBC UrineNONE SEEN0-2 #/HPFBacteria UrineTRACENONE SEEN #/HPFMucus UrineNONE SEENNONE SEENSquamous Epithelial Cell UrineFEW NONE/RARE #/LPFCrystals Seen?None SeenNone Seen #/HPFCast Seen?NONE SEENNONE SEEN #/LPFPerforming Lab:see noteML - [facility] Reason For Referral No Information Medications Medication SIG (Take, Route, Frequency, Duration) Notes Start Date End Date Status Ubrelvy 100 mg 100 mg As directed Orally - ActiveOXcarbazepine 600 MG1 tablet Orally dailyActiveFLUoxetine HCl 40 MG1 capsule Orally Once a day; Duration: 90 daysActiveQulipta 60mgOne daily Orally DailyActiveDivalproex Sodium 250 MGas directed Orally twice a dayActive Diclofenac Sodium 75 MG1 tablet as needed Orally Twice a day; Duration: 30 days 5ActiverOPINIRole HCl ER 8 MG1 tablet Orally Once a day; Duration: 90 daysActivebusPIRone HCl 30 MG1 tablet Orally Twice a day; Duration: 90 days ActiveAfrin Nasal SprayActiveMetoprolol Tartrate 50 MG1 tablet with food Orally Twice a day; Duration: 90 daysActiveOmeprazole 20 MG1 capsule 1/2 to 1 hour before morning meal Orally Once a dayActivelamoTRIgine 200 MG1 tablet Orally Twice a day; Duration: 90 daysActiveMethocarbamol 750 MG1 tablet Orally 4 times a dayActiveTrulicity 3 MG/0.5MLas directed SubcutaneousActivemetFORMIN HCl 1000 MG1 tablet with a meal Orally twice a dayActiveJardiance 25 MG1 tablet Orally Once a dayActiveQUEtiapine Fumarate ER 400 MG1 tablet in the evening Orally Once a day; Duration: 90 days5ActiveGlimepiride 4 MG1 tablet with breakfast or the first main meal of the day Orally Once a dayActiveAllegraActive Mirtazapine 30 MG1.5 tablet at bedtime Orally Once a day; Duration: 90 days ActiveFexofenadine-Pseudoephed ER 180-240 MG1 tablet Orally Once a day; Duration: 90 days5ActiveQUEtiapine Fumarate 50 MG1 tablet at bedtime Orally Once a day; Duration: 90 daysActivePotassium Chloride ER 10 MEQ1 tablet with food Orally Twice a day; Duration: 90 daysActiveCyanocobalamin 1000 MCG1 tablet Orally Once a day; Duration: 90 daysActiveVitamin D2 50 MCG (1999 UT)1 tablet Orally Once a day; Duration: 90 daysActive Social History Tobacco Use: Social History Observation [...] Problem Status W/U Status Risk Notes Problem Hypothyroidism (47388782) Hypothyroidism (E03.9) ActiveconfirmedProblemWell adult (985768901)Well adult (Z00.00)Activeconfirmed ProblemHypercholesterolemia (06988846)Hypercholesterolemia (E78.00)Active confirmed Vital Signs Blood pressure diastolic 62 mm Hg 06/06/2025 Fnuxts38 in06/06/2025lood pressure zqqsxihs043 mm Hg06/06/20255991Zyvjld178.6 lbs 06/06/2025BMI32.17 kg/m206/06/2025 Encounters Encounter Location Date Provider Diagnosis [facility] [address] [place] [address] 06/06/2025 Tay Kaur Well adult Z00.00 [facility] [address] [place] [address] 06/06/2025 Tay Kaur Well adult Z00.00 [facility] [address] [facility] [place] [address] 06/07/2025 Tay Parikhy Well adult Z00.00 [facility] [address] [facility] [address] 06/10/2025 Tay Hoy Hypothyroidism E03.9 and Hypercholesterolemia E78.00 Assessments Encounter Date Diagnosis (ICD Code) Assessment Notes Treatment Notes Treatment Clinical Notes Section Notes 06/06/2025 Well adult (ICD-10 - Z00.00) 06/06/2025Well adult (ICD-10 - Z00.00)06/07/2025Well adult (ICD-10 - Z00.00) 06/10/2025Hypothyroidism (ICD-10 - E03.9)06/10/2025Hypercholesterolemia (ICD-10 - E78.00) Plan Of Treatment Pending Test Test Name Order Date UA (URINALYSIS, COMPLETE) 06/06/2025 COMPREHENSIVE METABOLIC PROFILE WITH GFR 06/06/2025 OCCULT BLOOD, FECAL, IMMUNOASSAY 025 CBC W/AUTO DIFF 06/06/2025 CULTURE URINE 06/06/2025 LIPID PROFILE 06/10/2025 LIVER PROFILE 06/10/2025 THYROID PANEL (T4/TSH/FREE T3) 5 THYROID PANEL (T4/TSH/FREE T3) 5 Vitamin D 06/06/2025 Lipid Panel 06/06/2025 Insurance Providers Payer Name Payer Address Payer Phone Subscriber Number Group Number Insured Name Patient Relationship to Insured Coverage Start Date Coverage End Date O [address] [facility], [place] [id number] Ced Marte - patient is the insured Medical (General) History Surgical History Surgery Date(Month/Year) cyst removed from right ankle 4 knee scopesgallbladder and appendix removedcarpal tunnel bilateral3 csections hysterectomy partial
--- OUTSIDE RECORDS SUMMARY | 2025-06-12 17:10 | XMS_ITS | Clinical Summary ---
Author Organization [facility] Address [address] [place] [address] Care Team Providers Care Stem Shaper Name Role Phone Kevin Rosa MD Unavailable Janice Dick Unavailable Tawanda Alexander MD Primary Care Provider Allergies Active AllergyReactionsCriticalityNoted DateCommentsAmoxicillin-Pot Clavulanate Hives,Nausea Only,Nausea And UlhnkqibXhoykg75/15/2016Soap & CleansersItching Ftsaey6109/04/20174804XvxqjsZetdzNpk07/08/2018 Able to ingest tomato products, allergy is only when tomato acid is touched on skin only Medications MedicationSigDispense QuantityRefillsLast FilledStart DateEnd DateStatus Blood Glucose Monitoring Suppl (FreeStyle Lite) w/Device kit 08/23/2022ctive busPIRone (Buspar) 30 MG tablet 10/28/2022ctive FLUoxetine (PROzac) 40 MG capsule 10/28/2022ctive [employer] Blood Glucose Test test strip 08/23/2022ctive ibuprofen 200 MG tablet Take 200 mg by mouth every 6 (six) hours if neededActive lamoTRIgine (LaMICtal) 200 MG tablet Take 200 mg by mouth in the morning and 200 mg before bedtime.12/03/2022ctive FreeStyle lancets 11/27/2022ctive metoprolol tartrate (Lopressor) 50 MG tablet Take 50 mg by mouth in the morning and 50 mg in the evening.12/03/2022ctive mirtazapine (Remeron) 30 MG tablet 10/22/2022ctive omeprazole (PriLOSEC) [address] capsule Take 20 mg by mouthActive Oxymetazoline HCl (Nasal Jewell) 0.05 % solution Administer 2 sprays into affected nostril(s) in the morning and 2 sprays in the evening.Active QUEtiapine (SEROquel) 50 MG tablet Take 50 mg by mouth in the morning and 50 mg at noon and 50 mg in the evening. 12/03/2022ctive QUEtiapine XR (SEROquel XR) 400 MG 24 hr tablet Take 2 tablets by mouth at hophskp5512/03/2022ctive calcitriol (Rocaltrol) 0.5 MCG capsule Take 0.5 mcg by mouth DailyActive potassium chloride CR (Klor-Con M10) 10 MEQ ER tablet Take 10 mEq by mouth Daily Do not crush or chew.Active rOPINIRole XL (Requip XL) 8 MG 24 hr tablet Take 8 mg by mouth at vpcaxpk4907/19/2023ctive Continuous Glucose Sensor (Dexcom G7 Sensor) misc 1 eachActive methylPREDNISolone (Medrol Dospak) 4 MG tablets Indications:S/P right knee arthroscopyFollow schedule on package instructions 21 tablet 06/11/2024ctive divalproex (Depakote) 250 MG EC tablet Indications:Chronic migraine without aura without status migrainosus, not intractableTake 1 tablet (250 mg) by mouth in the morning and 1 tablet (250 mg) before bedtime. Do not crush, chew, or split.. 60 tablet 5009/20/2025ctive methocarbamol (Robaxin) 750 MG tablet Indications:Neck painTake 1 tablet (750 mg) by mouth 4 (four) times a day as needed for muscle spasms 360 tablet tive OXcarbazepine (Trileptal) 600 MG tablet Indications:Lumbosacral radiculopathyTake 1 tablet (600 mg) by mouth at bedtime 90 tablet 5Active divalproex (Depakote) 500 MG EC tablet Indications:Chronic migraine without aura without status migrainosus, not intractableTake 1 tablet (500 mg) by mouth in the morning and 1 tablet (500 mg) before bedtime. Do not crush, chew, or split. In addition to 250mg BID. 60 tablet tive cyanocobalamin (Vitamin B-12) 1000 MCG tablet Take 1,000 mcg by mouth in the morning.10/01/2024tive diazePAM (Valium) 5 MG tablet Indications:Balance problemTake 1 tablet (5 mg) by mouth 1 time for 1 dose 30 minutes prior to MRI. May repeat x 1. 2 tablet 11/15/2024tive empagliflozin (Jardiance) 25 MG Indications:Type 2 diabetes mellitus with hyperglycemia, without long-term current use of insulin ([facility])Take 1 tablet (25 mg) by mouth Daily 90 tablet ctive glimepiride (Amaryl) 4 MG tablet Indications:Type 2 diabetes mellitus with hyperglycemia, without long-term current use of insulin ([facility])Take 1 tablet (4 mg) by mouth in the morning and 1 tablet (4 mg) before bedtime. 180 tablet tive metFORMIN (Glucophage) 1000 MG tablet Indications:Type 2 diabetes mellitus with hyperglycemia, without long-term current use of insulin ([facility])Take 1 tablet (1,000 mg) by mouth in the morning and 1 tablet (1,000 mg) in the evening. Take with meals. 180 tablet ctive Dulaglutide (Trulicity) 3 MG/0.5ML solution auto-injector Indications:Type 2 diabetes mellitus with hyperglycemia, without long-term current use of insulin ([facility])Inject 3 mg under the skin every 7 (seven) days 6 mL tive glucose blood ([employer] Verio) test strip Indications:Type 2 diabetes mellitus with hyperglycemia, without long-term current use of insulin ([facility])USE TO TEST BLOOD SUGARS THREE TIMES A DAY. 300 each ctive Blood Glucose Monitoring Suppl (OneTouch Verio Flex System) w/Device kit Indications:Type 2 diabetes mellitus with hyperglycemia, without long-term current use of insulin ([facility])1 kit in the morning and 1 kit in the evening and 1 kit before bedtime. 1 kit tive Lancets Ultra Thin 30G [facility] [place] Indications:Type 2 diabetes mellitus with hyperglycemia, without long-term current use of insulin (HCC)USE THREE TIMES A DAY. 300 each 5Active Active Problems ProblemNoted DateDiagnosed DateRight anterior knee pain02/16/2024Insomnia, qbfzkydjudj37/20/2024Hypersomnia, lzseixhxglr68/20/1842Rrkujiuxaam34/20/2024 Occipital rfyqbaaoi93/20/7617Ccfmecsgcxpz56/20/5913Fjfhguih22/20/2024Migraine 01/17/2024Symptoms referable to back01/17/2024estless leg dlpyhdwj13/20/2024 Pain in joint, pelvic region and thigh01/17/2024Malaise and lquqvml0101/17/2024 Back pain01/17/2024Lumbar tnbtauuossz67/20/5573Cyqhjkw61/20/2024Lumbosacral xxmekanntpavm77/20/2024arpal tunnel itvamavh09/20/2024Encounter for long-term opiate analgesic use01/17/2024ain in limb01/17/20247155Ksyqepph77/20/2024Muscle spasm01/17/2024Syndrome affecting cervical efrlil0401/17/2024ain in joint, shoulder lqvrvh0301/17/2024egenerative disc disease, aculbrah89/20/2024Neck pain 01/17/2024isturbance of skin yerjokjpc66/20/2024Obstructive sleep apnea 01/17/2024adiculopathy, lumbosacral rcjjtl7901/17/2024egenerative disc disease, oxehlh6201/17/2024ubital tunnel meoagwyl31/20/2024 Immunizations ImmunizationAdministration DatesNext DueInfluenza, recombinant, quadrivalent, injectable, preservative free03/17/2020 Family History * Patient is adopted Medical HistoryRelationNameCommentsNo Known ProblemsFatherNo Known Problems MotherRelationNameStatusCommentsFatherAliveMotherAlive Social History Tobacco UseTypesPacks/DayYears UsedDateSmoking Tobacco: NeverSmokeless Tobacco: Never Tobacco Cessation:Counseling Given: Not Answered Alcohol UseStandard Drinks/WeekCommentsYes0 (1 standard drink = 0.6 oz pure alcohol)1-2 drinks, monthly or less. caffeine intake: 1-2 cups per day. CommentsNoSex and Gender InformationValueDate RecordedSex Assigned at BirthNot on fileLegal DbrIsjofx78/15/2023 7:33 PM EDTGender IdentityNot on fileSexual OrientationNot on file Last Filed Vital Signs Vital SignReadingTime TakenCommentsBlood Zqnamscm706/6009 11:15 AM EDT Kvxgb4667 11:15 AM EDTTemperature--Respiratory Edic943103/10/2025 11:15 AM EDTOxygen Hwovzjrgaw23%03/10/2025 11:15 AM EDTInhaled Oxygen Concentration-- Bjrdxy37.6 kg (191 lb)03/10/2025 11:15 AM UGVJwpkyd500 cm (5' 3 )03/10/2025 11:15 AM EDTBody Mass Index33.8303/10/2025 11:15 AM EDT Plan of Treatment DateTypeDepartmentCare Team (Latest Contact Info)Bescrzuoiel02/14/2026 1:20 PM ESTOffice Visit [facility] [address] [place] [address] Boubacar Ruby MD [address] [place] [address] Health MaintenanceDue DateLast DoneCommentsCT Ezxvgowaqegl1979Colonoscopy 1979Colorectal Cancer Xqvuwotgm1979FIT-DNA1979FIT1979 FOBT1979 8054Iwwfddggcbncb1979Pap Smear06/08/20007565Reulwxvuk76/24/2024 11/20/2022, 09/20/2021, 07/15/2019Cervical Cancer Sqnaotayh04/04/2025HPV/Cotest COVID-19 Vaccine ( season), 10/03/2020, 09/12/2020Influenza Vaccine (#1)5003/17/2020Pneumococcal Vaccine: Pediatrics (0 to 5 Years) and At-Risk Patients (6 to 64 Years)Aged Out No longer eligible based on patient's age to complete this topic Procedures Procedure NamePriorityDate/TimeAssociated DiagnosisCommentsQ - THINPREP(R) TIS AND HPV MRNA E6/E7 RFL HPV 16,18/26Ssvacij92/04/2020 from Last 3 Months or Most Recently Relevant to Health Maintenance Results * Q - THINPREP(R) TIS AND HPV MRNA E6/E7 RFL HPV 16,18/45 (02/01/2020)Component ValueRef RangeTest MethodAnalysis TimePerformed AtPathologist Signature CLINICAL INFORMATION:None givenNOMS LEGACY EXTERNAL LABLMP:None givenNOMS LEGACY EXTERNAL LABPREV. PAP:None givenN[facility]S LEGAC[facility] EXTERNAL LABPREV. BX:None givenN[facility] EXTER[facility] LABSOURCE:None given[facility] STATEMENT OF ADEQUACY:SEE NOTENOMS LEGACY EXTERNAL LABComment: Satisfactory for evaluation. Endocervical/transformation zone component present. INTERPRETATION/RESULT:Negative for intraepithelial lesion or malignancy.[facility] LABCOMMENT:This Pap test has been evaluated with computer assisted technology.[facility] LABCYTOTECHNOLOGIST:SEE NOTENOMS LEGACY EXTERNAL LABComment: GIOVANI WEBER(ASCP) CT screening location: [address] [place] [address]. REVIEW CLINICAL SAFETY MANAGER:SEE NOTENONH LEGACY EXTERNAL LABComment: GIOVANI FUENTES(ASCP) CT screening location: [place] [place] [address]. COMMENTSEE NOTENOMS LEGACY EXTERNAL LABComment: EXPLANATORY NOTE: The Pap is a screening test for cervical cancer. It is not a diagnostic test and is subject to false negative and false positive results. It is most reliable when a satisfactory sample, regularly obtained, is submitted with relevant clinical findings and history, and when the Pap result is evaluated along with historic and current clinical information. HPV MRNA E6/E7Not DetectedNot DetectedNOMS LEGACY EXTERNAL LABComment: This test was performed using the APTIMA HPV Assay ([employer] This assay detects E6/E7 viral messenger RNA (mRNA) from 14 high-risk HPV types (16,18,31,33,35,39,45,51,52,56,58,59,66,68). The analytical performance characteristics of this assay have been determined by [employer]. The modifications have not been cleared or approved by the FDA. This assay has been validated pursuant to the CLIA regulations and is used for clinical purposes. Specimen (Source)Anatomical Location / LateralityCollection Method / Volume Collection TimeReceived Time02/01/2020 Narrative Authorizing ProviderResult TypeResult StatusValeristella North CNWVUMEDICINE BARN[facility]VILLE HOSPITALW LABSFinal ResultPerforming OrganizationAddressCity/State/ZIP CodePhone Number [facility] from Last 3 Months or Most Recently Relevant to Health Maintenance Insurance Care Teams Team MemberRelationshipSpecialtyStart DateEnd Date Tawanda Alexander MD [address] [place] [address] PCP - GeneralFamily Medicine09/15/24 Kevin Rosa MD [address] [place] [address] Referring TzvytttfkUbmgteupp61/12/24 Janice Dick PA [address] [place] [address] Physician HljpkbcixBcnyntcup60/12/24
--- OUTSIDE RECORDS SUMMARY | 2025-06-12 17:10 | XMS_ITS | Clinical Summary ---
Author Organization [facility] Address [address] [place] [id number] Care Team Providers Care [place] Worker Name Role Phone Janice Dick MYLENE Unavailable Allergies Active AllergyReactionsCriticalityNoted DateCommentsClavulanic AcidVomiting 08/23/20176724RjxzvxUzpcmDqe16/08/2018 Able to ingest tomato products, allergy is only when tomato acid is touched on skin only Medications MedicationSigDispense QuantityRefillsLast FilledStart DateEnd DateStatus metoprolol tartrate, short acting, (LOPRESSOR) 50 mg tablet TAKE 1 TABLET IN THE MORNING AND 1 TABLET BEFORE OIVDGDH9912/03/2022ctive metFORMIN (GLUCOPHAGE) 1,000 mg tablet Take 1,000 mg by mouth.08/23/2017Active OXcarbazepine (TRILEPTAL) 600 mg tablet Take by mouth every 12 hours.02/18/2022ctive fluconazole (DIFLUCAN) 100 mg tablet TAKE 1 TABLET BY MOUTH IN THE MORNING FOR 7 DAYS09/05/2023ctive glimepiride (AMARYL) 4 mg tablet Take 2 tablets by mouth every morning.08/23/2017Active QUEtiapine XR (SEROQUEL XR) 400 mg 24 hr tablet 08/12/2023ctive empagliflozin (JARDIANCE) 25 mg tablet 10/22/2022ctive busPIRone HCl 30 mg tablet busPIRone (BUSPAR) 30 mg tablet TAKE 1 TABLET IN THE MORNING AND 1 TABLET BEFORE BEDTIME 180 tablet3 04/28/2023 Czhxcx2910/28/2022ctive lamoTRIgine (LAMICTAL) 200 mg tablet Take by mouth every 24 hours.12/03/2022ctive methocarbamol (ROBAXIN) 750 mg tablet 09/16/2023ctive atogepant (QULIPTA) 60 mg tablet 08/07/2022ctive rOPINIRole ER (REQUIP XL) 8 mg tablet 07/19/2023ctive mirtazapine (REMERON) 30 mg tablet every 24 hours.10/22/2022ctive ubrogepant (UBRELVY) 100 mg tablet TAKE 1 TABLET AT ONSET OF MIGRAINE MAY REPEAT IN 2 HOURS. NO MORE THAN 2 TABLET IN 24 HOURS AND NO MORE THAN TWICE WEEKLY BTHMDK8701/08/2021ctive NEIL-D 24 HOUR 180-240 mg per 24 hr tablet Take 1 tablet by mouth every afternoon.07/24/2023ctive omeprazole (PRILOSEC) 20 mg capsule Take by mouth every 24 hours.Active dulaglutide (TRULICITY) 3 mg/0.5 mL pen injector 07/01/2023ctive Active Problems No known active problems Social History Tobacco UseTypesPacks/DayYears UsedDateSmoking Tobacco: NeverSmokeless Tobacco: Never Tobacco Cessation:Counseling Given: Not Answered Alcohol UseStandard Drinks/WeekCommentsYes0 (1 standard drink = 0.6 oz pure alcohol)occArea Deprivation IndexAnswerDate RecordedNational Score (1-100), lower number is lower bdcx997109/26/2023State Score (1-10), lower number is lower upqc124ata from: https://www.neighborhoodatlas.medicine.[facility].edu/. Last address used for [address] [facility] [address]/26/2023CommentsUnknown Sex and Gender InformationValueDate RecordedSex Assigned at BirthNot on file Legal CobXpllis40/02/2012 7:18 AM ESTGender IdentityNot on fileSexual OrientationNot on file Last Filed Vital Signs Vital SignReadingTime TakenCommentsBlood Pressure--Oepon872809/26/2023 12:04 PM EDTTemperature--Respiratory Sgka846309/26/2023 12:04 PM EDTOxygen Jzdmoaysxc89% 09/26/2023 12:04 PM EDTInhaled Oxygen Concentration--Pgnmmi19.8 kg (167 lb 3.5 oz)09/26/2023 12:04 PM EDTHeight--Body Mass Index-- Plan of Treatment Health MaintenanceDue DateLast DoneCommentsAnxiety Pzbbivxes85/10/1997Depression Prkkbugzt19/10/1997HIV Godgasgon29/10/1997Hepatitis C Xujlufejl13/10/1997 DTaP,Tdap,Td Vaccine (1 - Tdap)1998Hepatitis B Vaccine (1 of 3 - 19+ 3- dose series)1998Cervical Cancer Zxwmugoku37/10/2000Mammogram Screening /, 09/20/2021, 07/15/2019CT Iirnnzzfsptg31/10/2024ologuard (FIT-DNA)06/08/20242041Pxfmugrcnom89/10/2024olorectal Cancer Xwopnsluh60/10/2024 Fecal Occult Blood06/08/20244123Gocxnvcecctku33/10/2024ovid-19 Vaccine ( season)512/, 10/03/2020, 09/12/2020Influenza Vaccine (#1) 509/Diabetes Jwclrrzfv47/11/102736/04/2023, 12/13/2022, 09/16/2022, Additional history existsLipid Ffvhtcjns58/20/277397/, 12/12/2021, 09/20/2021, Additional history exists Procedures Procedure NamePriorityDate/TimeAssociated DiagnosisCommentsBASIC METABOLIC PANEL 10/03/2004 2:25 PM EDT from Last 3 Months or Most Recently Relevant to Health Maintenance Results * (ABNORMAL) BASIC METABOLIC PNL (10/03/2004 2:25 PM EDT)ComponentValueRef Range Test MethodAnalysis TimePerformed AtPathologist RgrydcdxnKkamnrs8528 - 100 mg/dLCLEWILSON MEMORIAL [facility] LABBUN7(A)8 - 25 mg/dLCLEWILSON MEMORIAL HOSPITAL LABCreatinine0.6 (A)0.7 - 1.4 mg/dLMER[facility] AHFCzlrke426542 - 148 mmol/[facility] LABPotassium3.73.5 - 5.0 mmol/[facility] ZCWUyxzmvpp82723 - 110 mmol/[facility] LFBHU44373 - 32 mmol/[facility] LABAnion Gap70 - 15 mmol/[facility] LABCalcium9.58.5 - 10.5 mg/dLMERCY [facility]ALTH [facility] LAB Specimen (Source)Anatomical Location / LateralityCollection Method / Volume Collection TimeReceived Time10/03/2004 2:25 PM EDT Narrative Authorizing ProviderResult TypeResult StatusJason ([place])(Hist) [facility] LABORATORYFinal ResultPerforming OrganizationAddressCity/State/ZIP CodePhone Number [facility] [address] [place] [address] from Last 3 Months or Most Recently Relevant to Health Maintenance Insurance Care Teams Team MemberRelationshipSpecialtyStart DateEnd Date Janice Dick PA-C [address] [place] [address] [facility]09/17/23
--- OUTSIDE RECORDS SUMMARY | 2025-06-12 17:10 | XMS_ITS | Clinical Summary ---
Author Organization [employer] tem Address [id number] [address] [place] [address] Care Team Providers Care Senior Investment Manager Name Role Phone Jose Espinosa MD Primary Care Provider [phone] Allergies Active AllergyReactionsCriticalityNoted DateCommentsAmoxicillin-Pot Clavulanate AzmdsdPbcutx14/15/2016Clavulanic AhhfIzycbmyi30/24/2018Gold Au 198Other (See Comments)09/29/2024 Yellow gold- causes skin to peel CuvtWiqhckbKjrbsd36/08/2018 [facility] soap Medications MedicationSigDispense QuantityRefillsLast FilledStart DateEnd DateStatus oxymetazoline (AFRIN) 0.05 % nasal spray Administer 2 sprays into each nostril as needed in the morning and 2 sprays as needed in the evening for congestion.Active ONETOUCH ULTRA TEST strip 03/24/2017Active ibuprofen (ADVIL,MOTRIN) 200 mg tablet Take 1 tablet (200 mg total) by mouth every 6 (six) hours as needed for pain. Active omeprazole (PriLOSEC) 20 mg capsule Take 1 capsule (20 mg total) by mouth.Active blood-glucose meter (WeVideo.It) kit Freestyle [place] Lite Glucometer, Test tid, Diagnosis: E11.65 1 each 01/10/2020Active UBRELVY 100 mg tablet 01/08/2021ctive QULIPTA 60 mg tablet 08/07/2022ctive methocarbamoL (ROBAXIN) 750 mg tablet Take 1 tablet (750 mg total) by mouth in the morning and 1 tablet (750 mg total) before bedtime.08/06/2022ctive lancets (freestyle) 28 gauge [facility] [place] Lancets for Freestyle Lite, Test tid, Diagnosis: E11.65 200 each ctive blood sugar diagnostic (glucose blood) strip Freestyle Lite Test Strips, Test tid, Diagnosis: E11.65 200 strip ctive blood-glucose meter [facility] [place] Freestyle Lite Glucometer, Test tid, Diagnosis: E11.65 1 each 08/23/2022ctive metFORMIN (GLUCOPHAGE) 1000 mg tablet Take 1 tablet (1,000 mg total) by mouth in the morning and 1 tablet (1,000 mg total) before bedtime. 180 tablet ctive JARDIANCE 25 mg tablet tablet 10/22/2022ctive TRULICITY 3 mg/0.5 mL pen injector Inject 3 mg under the skin once a week. Every qomusobzt35/02/2024ctive busPIRone (BUSPAR) 30 mg tablet Take 0.999 tablets (30 mg total) by mouth in the morning and 0.999 tablets (30 mg total) before bedtime. 180 tablet ctive FLUoxetine (PROzac) 40 mg capsule Take 1 capsule (40 mg total) by mouth in the morning. take in the morning. 90 capsule ctive OXcarbazepine (TRILEPTAL) 600 mg tablet Take 1 tablet (600 mg total) by mouth in the morning and 1 tablet (600 mg total) before bedtime. 180 tablet ctive QUEtiapine (SEROquel) 50 mg tablet Take 1 tablet (50 mg total) by mouth 3 (three) times a day. 270 tablet ctive lamoTRIgine (LaMICtal) 200 mg tablet Take 1 tablet (200 mg total) by mouth in the morning and 1 tablet (200 mg total) before bedtime. 180 tablet tive divalproex (DEPAKOTE) 250 mg EC tablet Take 1 tablet (250 mg total) by mouth in the morning and 1 tablet (250 mg total) before bedtime. Total dose= 750 mg BID of Depakote.5Active cyanocobalamin 1000 MCG tablet Take 1 tablet (1,000 mcg total) by mouth in the morning. 30 tablet 5Active glimepiride (AMARYL) 4 mg tablet TAKE 2 TABLETS EVERY MORNING 180 tablet 5Active QUEtiapine XR (SEROquel XR) 400 mg 24 hr tablet TAKE 2 TABLETS NIGHTLY 180 tablet 5Active metoprolol tartrate (LOPRESSOR) 50 mg tablet TAKE 1 TABLET IN THE MORNING AND 1 TABLET BEFORE BEDTIME 180 tablet 5Active potassium chloride (KLOR-CON M 10) 10 MEQ CR tablet TAKE 1 TABLET IN THE MORNING 90 tablet 5Active ergocalciferol (DRISDOL) 1,250 mcg (50,000 unit) capsule TAKE 1 CAPSULE ONCE A WEEK ON WEDNESDAYS 12 capsule 5Active rOPINIRole XL (REQUIP XL) 8 mg 24 hr tablet Indications:RLS (restless legs syndrome)TAKE 1 TABLET NIGHTLY 90 tablet 5Active mirtazapine (REMERON) 30 mg tablet TAKE ONE AND ONE-HALF TABLETS NIGHTLY 135 tablet 5Active fexofenadine-pseudoephedrine (NEIL-D 24 HOUR) 180-240 mg per 24 hr tablet Indications:Seasonal allergies,RhinopharyngitisTake 1 tablet by mouth in the morning. 90 tablet 5Active celecoxib (CeleBREX) 200 mg capsule Take 1 capsule (200 mg total) by mouth daily with breakfast.05/18/2025 Discontinued(Patient Stopped On Own) NEIL-D 24 HOUR 180-240 mg per 24 hr tablet Indications:Seasonal allergiesTAKE 1 TABLET BY MOUTH IN THE MORNING 30 tablet Discontinued(Reorder) CEPHalexin (KEFLEX) 500 mg capsule Indications:RhinopharyngitisTake 1 capsule (500 mg total) by mouth in the morning and 1 capsule (500 mg total) before bedtime. Do all this for 5 days. 10 capsule Expired fluconazole (DIFLUCAN) 150 mg tablet Indications:ThrushTake 1 tablet (150 mg total) by mouth every third day for 7 days. 2 tablet 5107/25/2024Expired predniSONE (DELTASONE) 20 mg tablet Indications:RhinopharyngitisTake 1 tablet (20 mg total) by mouth daily for 3 days, THEN 0.5 tablets (10 mg total) daily for 3 days. 5 tablet Expired Active Problems ProblemNoted DateDiagnosed DateBilateral leg /02/2025Exposure to the flu08/04/2019Cough in adult pikvozm7208/04/2019Type 2 diabetes mellitus with hyperglycemia, without long-term current use of vlnwqnd4702/18/2018Diabetes mellitus without gfsatrwcwhfk82/27/2150Gnkebrjvuom81/27/2017Fibromyalgia 04/25/2017OSA on CPAP06/13/20164034Jlgxvahm35/15/2016Bipolar 1 disorder Encounters DateTypeDepartmentCare NneqXhdjioaxghw68/28/2025 11:37 AM EST - 05/27/2025 4:24 PM [facility] [address] [place] [phone] David Barajas MD Dehydration (Primary Dx); Hypokalemia Discharge Disposition: Home05/27/20256367Fradic18/19/2025 10:30 AM ESTOffice Visit [facility] [address] [place] [phone] Jose Espinosa MD Rhinopharyngitis (Primary Dx); Seasonal allergies; Qzjkki8905/18/20257822Kikuin21/20/2025Refill [facility] [address] [place] [phone] Jose Espinosa MD Seasonal ftlniejnw55/15/2025Telephone [facility] [address] [place] [phone] Tamiko Melchor, [facility] 03/22/2025Refill [facility] [address] [place] [phone] Tawanda Alexander MD RLS (restless legs syndrome)from Last 3 Months Immunizations ImmunizationAdministration DatesNext DueCOVID-19, mRNA, LNP-S, PF, 30mcg/0.3mL Dose10/03/2020,09/12/2020Influenza, Recombinant, Quadrivalent, Injectable, Kkfjymb4603/17/2020Tdap1 Social History Tobacco UseTypesPacks/DayYears UsedDateSmoking Tobacco: NeverSmokeless Tobacco: Never Tobacco Cessation:Counseling Given: Not Answered Alcohol UseStandard Drinks/WeekCommentsYes0 (1 standard drink = 0.6 oz pure alcohol)[facility] UtilitiesAnswerDate RecordedIn the past 12 months has the [place], gas, oil, or water [employer] threatened to shut off services in your home?No 09/29/2024PHQ-2AnswerDate RecordedTotal Kajua42807/18/2024PRAPARE - Transportation AnswerDate RecordedIn the past 12 months, has lack of transportation kept you from medical appointments or from getting medications?No09/29/2024In the past 12 months, has lack of transportation kept you from meetings, work, or from getting things needed for daily living?No09/29/2024UDIT-CAnswerDate RecordedQ1: How often do you have a drink containing alcohol?Monthly or less05/18/2025Q2: How many drinks containing alcohol do you have on a typical day when you are drinking?1 or Q3: How often do you have six or more drinks on one occasion?Never05/18/2025Housing InstabilityAnswerDate RecordedAre you worried or concerned that in the next two months you may not have stable housing that you own, rent or stay in as a part of a household?No09/29/2024hildcareAnswerDate YswqaatzPjgkvmtpbMjwcvds04/06/2019EmploymentAnswerDate RecordedEmploymentUnknown 12/03/2018Hunger ScreeningAnswerDate RecordedWithin the past 12 months we worried whether our food would run out before we got money to buy more.Never True05/27/2025Within the past 12 months the food we bought just didn't last and we didn't have money to get more.Never True05/27/2025Purpose - LifeAnswerDate RecordedPurpose and direction in blbkXlakhuv82/12/2021CommentsNoSex and Gender InformationValueDate RecordedSex Assigned at LahqsFklfsr78/29/2024 11:31 AM EDTLegal BcyXrpugc85/06/2015 11:39 AM EDTGender PkpljwqlDkqkxn28/29/2024 11:31 AM EDTSexual VmmrhljtyfuGfxbnylc21/29/2024 11:31 AM EDTTravel History Travel StartTravel EndWest Jnqydrie08 Last Filed Vital Signs Vital SignReadingTime TakenCommentsBlood Azydfjxg989/8305/27/2025 4:15 PM EST Ywjna23431/28/2025 4:15 PM CLUGgsayvhahvn51.2 ??C (97.2 ??F)05/27/2025 11:43 AM ESTRespiratory Cmpe870907/27/2024 4:15 PM ESTOxygen Ncvmrbzygt83%05/27/2025 4:15 PM ESTInhaled Oxygen Concentration--Bqrand79.3 kg (188 lb)05/27/2025 11:43 AM PNTQuwrjb985.5 cm (5' 3.6 )09/29/2024 6:00 PM EDTBody Mass Index32.68009/29/2024 6:00 PM EDT Plan of Treatment DateTypeDepartmentCare Team (Latest Contact Info)Cbywzwbcyyx27/15/2026 11:15 AM ESTOffice Visit [facility] [address] [place] [phone] Jose Espinosa MD [address] [place] [address] Health MaintenanceDue DateLast DoneCommentsDiabetic Ophthalmology Exam08/08/2024 08/08/2023, 12/18/2021, 12/23/2019, Additional history existsAdult BMI Follow Up Plan503/29/2024COVID-19 Vaccine ( season)2025 06/26/2021, 10/03/2020, 09/12/2020Influenza Lxiplbw12/Diabetic Foot Exam/, 07/12/2020, 01/07/2020, Additional history exists Depression Rrwtodmbg23Tobacco Qpgsfcszl88 Adult BMI Aoupbwosv27DTaP,Tdap and Td Vaccines (2 - Td or Tdap) Goals GoalPatient Goal TypeAssociated ProblemsRecent ProgressPatient-Stated?Author <enter goal here> Payal Huang RN Note: Evaluation of progress towards goal: safe discharge Medical Devices Not on file Procedures Procedure NamePriorityDate/TimeAssociated DiagnosisCommentsPOCT , URINE (NUCG)Vuagsrm6205/27/2025 3:16 PM EST ER EXTRA URINE IAWHNTYMCGT19/28/2025 3:10 PM EST ER EXTRA UAPQSIOFT43/28/2025 3:10 PM EST POCT NURSING URINE MACROSCOPIC GAJwilwip98/28/2025 3:07 PM EST EXTRA TUBES BLUE KVVXnglqsx40/28/2025 11:51 AM EST BEDSIDE LCXTTKTFygbthq46/28/2025 11:51 AM EST EXTRA ZNUMJFrtzxhp86/28/2025 11:51 AM EST RFCSIMJVOJSBH33/28/2025 11:51 AM EST COMPREHENSIVE METABOLIC UZDMDNKUB94/28/2025 11:51 AM EST CBC WITH AUTO AHHEJHOUZSUDAESG30/28/2025 11:51 AM EST HM DIABETES EYE FRECSmvxfyx19/09/2024 10:17 AM ESTfrom Last 3 Months or Most Recently Relevant to Health Maintenance Results * POCT , urine (05/27/2025 3:16 PM EST)ComponentValueRef RangeTest MethodAnalysis TimePerformed AtPathologist SignaturePOC Urine NegativeNegative, Rgeweypcrojht89/28/2025 3:22 PM ESTPRONorthBay [facility] Center (Source)Anatomical Location / LateralityCollection Method / VolumeCollection TimeReceived KseaMjqao66/28/2025 3:16 PM EST 05/27/2025 3:22 PM EST Narrative Authorizing ProviderResult TypeResult StatusDavid Barajas MDPOINT OF CARE TEST ORDERABLESFinal ResultPerforming OrganizationAddressCity/State/ZIP CodePhone Number [address] [place] [address], [place] * Extra Urine Culture (05/27/2025 3:10 PM EST)ComponentValueRef RangeTest Method Analysis TimePerformed AtPathologist SignatureExtra TubeAuto Resulted 05/27/2025 5:01 PM ESTC[facility] (Source) Anatomical Location / LateralityCollection Method / VolumeCollection Time Received TimeUrineUrine specimen collection, clean catch / Dmlqtag2605/27/2025 3:10 PM EST05/27/2025 3:28 PM EST Narrative Authorizing ProviderResult TypeResult StatusSimona Nguyen PROJECT CONTROL MANAGER-CNPURINE ORDERABLESFinal ResultPerforming OrganizationAddressCity/State/ZIP CodePhone Number [address] [address], * Extra Urine (05/27/2025 3:10 PM EST)ComponentValueRef RangeTest MethodAnalysis TimePerformed AtPathologist SignatureExtra TubeAuto Sqopazhv24/28/2025 5:01 PM ESTC[facility] (Source)Anatomical Location / LateralityCollection Method / VolumeCollection TimeReceived TimeUrineUrine specimen collection, clean catch / Uptjily6505/27/2025 3:10 PM EST05/27/2025 3:28 PM EST Narrative Authorizing ProviderResult TypeResult StatusAmber Nguyen PROJECT CONTROL MANAGER-CNPURINE ORDERABLESFinal ResultPerforming OrganizationAddressCity/State/ZIP CodePhone Number [facility] [address] [place] [address], [place] * (ABNORMAL) POCT Nursing Urine Macroscopic UA (05/27/2025 3:07 PM EST)Component ValueRef RangeTest MethodAnalysis TimePerformed AtPathologist [facility] Urine Specific Gravity1.0201.010, 1.015, 1.020, 1.2794705/27/2025 3:09 PM EST [facility] Urine Leukocyte EsteraseNegative Laenvcxf95/28/2025 3:09 PM [facility] Urine MartefaGxuohvxhIisfyqxi82/28/2025 3:09 PM [facility] Urine pH5.55.0, 6.0, 6.5, 7.0, 7.5, 8.0, 8.5, 5. 3:09 PM [facility] Urine Cfmwnal16 mg/dL(A)Negative 05/27/2025 3:09 PM [facility] Urine Joucqqj222 mg/dL(A)Shiidiij83/28/2025 3:09 PM [facility] Urine Ketones>=160 mg/dL(A)Oepeqaob52/28/2025 3:09 PM [facility] Urine Urobilinogen0.2 E.U./dL05/27/2025 3:09 PM EST [facility] Urine BilirubinSmall(A)Negative 05/27/2025 3:09 PM [facility] Urine Blood/HGB Trace(A)Nnocwmvm16/28/2025 3:09 PM [facility] Specimen (Source)Anatomical Location / LateralityCollection Method / Volume Collection TimeReceived JelrRbqms68/28/2025 3:07 PM EST05/27/2025 3:09 PM EST Narrative Authorizing ProviderResult TypeResult StatusDavid Barajas MDPOINT OF CARE TEST ORDERABLESFinal ResultPerforming OrganizationAddressCity/State/ZIP CodePhone Number [address] [place] [address], [place] * Light Blue Top (05/27/2025 11:51 AM EST)ComponentValueRef RangeTest Method Analysis TimePerformed AtPathologist SignatureExtra TubeAuto Resulted 05/27/2025 1:01 PM [facility] ([facility]) Anatomical Location / LateralityCollection Method / VolumeCollection Time Received TimeBloodVenous blood / Dnimoxh9805/27/2025 11:51 AM EST05/27/2025 11:53 AM EST Narrative Authorizing ProviderResult TypeResult StatusRenataer Patrick PROJECT CONTROL MANAGER-CNPLAB BLOOD ORDERABLESFinal ResultPerforming OrganizationAddressCity/State/ZIP CodePhone Number [address] [place] [address], [place] * (ABNORMAL) CBC auto differential (05/27/2025 11:51 AM EST)ComponentValueRef RangeTest MethodAnalysis TimePerformed AtPathologist RqmfzqlbmZWJ47.0(H)4 - 11 10^9/L107/27/2024 12:01 PM [facility]ENTERRBC Count5.37 (H)3.8 - 5.2 10^12/L107/27/2024 12:01 PM [facility] Gtqhrxkzzd20.2(H)11.7 - 15.5 g/dL05/27/2025 12:01 PM [facility]ENTERHematocrit49.6(H)35 - 47 %05/27/2025 12:01 PM [facility]ENTERMCV9280 - 100 fL05/27/2025 12:01 PM [facility]ENTERMCH32.027 - 34 pg05/27/2025 12:01 PM [facility]ENTERMCHC34.732 - 36 g/dL05/27/2025 12:01 PM [facility]ENTERRDW14.611.5 - 15 %05/27/2025 12:01 PM ESTPROALMSHOUSE SAN FRANCISCOPlatelet Qrtvr362288 - 450 05/27/2025 12:01 PM ESTLUTHERAN HOSPITALMPV8.57 - 12 fL05/27/2025 12:01 PM EST [facility]ENTERNeutrophils %72.5%05/27/2025 12:01 PM EST [facility] HOSPITALLymphocytes %20.0%05/27/2025 12:01 PM EST [facility] HOSPITALMonocytes %5.9%05/27/2025 12:01 PM EST [facility] HOSPITALEosinophils %0.4%05/27/2025 12:01 PM EST [facility] %1.2%05/27/2025 12:01 PM EST [facility]ITALNeutrophils Absolute (A)8.7(H)1.5 - 6.6 1005/27/2025 12:01 PM ESTPROALMSHOUSE SAN FRANCISCOLymphocytes Absolute2.41.0 - 3.5 05/27/2025 12:01 PM ESTPROGOTHENBURG [facility] HOSPITALMonocytes Absolute0.70.0 - 0.9 05/27/2025 12:01 PM ESTPROGOTHENBURG MEMORIAL [facility] HOSPITALEosinophils Absolute0.00.0 - 0.4 05/27/2025 12:01 PM ESTPROALMSHOUSE SAN FRANCISCOBasophils Absolute0.10.0 - 0.2 1005/27/2025 12:01 PM [facility] CENTERDifferential TypeAUTOMATED QESFDGKAHRUJ25/28/2025 12:01 PM [facility]pecimen (Source)Anatomical Location / LateralityCollection Method / VolumeCollection TimeReceived TimeBloodVenous blood / UnknownVenipuncture / Nehsrhc7905/27/2025 11:51 AM EST05/27/2025 11:52 AM EST Narrative Authorizing ProviderResult TypeResult StatusAmber Nguyen PROJECT CONTROL MANAGER-CNPLAB BLOOD ORDERABLESFinal ResultPerforming OrganizationAddressty/State/ZIP CodePhone Number [address] [address], [place] * (ABNORMAL) Bedside Glucose *Place/Obtain serum glucose if >500 per glucometer. (05/27/2025 11:51AM EST)ComponentValueRef RangeTest MethodAnalysis Time Performed AtPathologist SignatureBedside Glucose (POC)203(H)65 - 99 mg/dL 05/27/2025 11:53 AM [facility] (Source) Anatomical Location / LateralityCollection Method / VolumeCollection Time Received Timearterial/uldcfzqyg24/28/2025 11:51 AM EST05/27/2025 11:53 AM EST Narrative Authorizing ProviderResult TypeResult StatusPOINT OF CARE TEST ORDERABLESFinal ResultPerforming OrganizationAddressCity/State/ZIP CodePhone Number [address] [address], [place] * Magnesium (05/27/2025 11:51 AM EST)ComponentValueRef RangeTest MethodAnalysis TimePerformed AtPathologist SignatureMAGNESIUM1.81.8 - 2.6 mg/dL05/27/2025 12:19 PM [facility] (Source)Anatomical Location / LateralityCollection Method / VolumeCollection TimeReceived Time BloodVenous blood / UnknownVenipuncture / Nnmcral9505/27/2025 11:51 AM EST 05/27/2025 11:52 AM EST Narrative Authorizing ProviderResult TypeResult StatusAmber Nguyen PROJECT CONTROL MANAGER-CNPLAB BLOOD ORDERABLESFinal ResultPerforming OrganizationAddressty/State/ZIP CodePhone Number [address] [address], [place] * (ABNORMAL) Comprehensive metabolic panel (05/27/2025 11:51 AM EST)Component ValueRef RangeTest MethodAnalysis TimePerformed AtPathologist SignatureSODIUM 728016 - 146 mmol/L107/27/2024 12:19 PM [facility] POTASSIUM3.1(L)3.5 - 5.0 mmol/L107/27/2024 12:19 PM [facility]ENTERCHLORIDE97(L)98 - 109 mmol/L107/27/2024 12:19 PM [facility] CENTERCARBON WGDVXFQ0961 - 32 mmol/L107/27/2024 12:19 PM EST [facility]ITALANION GAP17(H)5 - 15 mmol/L107/27/2024 12:19 PM [facility] CENTERBLOOD UREA ZZZNCWSS596 - 23 mg/dL 05/27/2025 12:19 PM [facility] CENTERCREATININE0.760.40 - 1.00 mg/dL05/27/2025 12:19 PM [facility] CENTERComment: METHOD TRACEABLE TO IDMS GKYSYHJFQTZSBNQ913(H)65 - 99 mg/dL05/27/2025 12:19 PM [facility] CENTERCALCIUM9.48.5 - 10.5 mg/dL05/27/2025 12:19 PM [facility] CENTERTOTAL PROTEIN8.06.0 - 8.0 g/dL 05/27/2025 12:19 PM [facility] CENTERALBUMIN4.23.2 - 5.3 g/dL05/27/2025 12:19 PM [facility] CENTERALKALINE IVSFUNNEPLC408(H)39 - 130 U/L107/27/2024 12:19 PM [facility]ENTERAST18<=41 U/L107/27/2024 12:19 PM [facility]ENTERALT17<=31 U/L107/27/2024 12:19 PM [facility] CENTERBILIRUBIN,TOTAL1.00.3 - 1.2 mg/dL05/27/2025 12:19 PM [facility] CENTEREGFR Non-Race Dependent>90>=60 ml/min/1.73sq.m 05/27/2025 12:19 PM [facility] CENTERComment: eGFR not reported due to non-numeric value for Creatinine. Reported eGFR is based on the CKD-EPI 2020 equation that does not use a race coefficient. Specimen (Source)Anatomical Location / LateralityCollection Method / Volume Collection TimeReceived TimeBloodVenous blood / UnknownVenipuncture / Unknown 05/27/2025 11:51 AM EST05/27/2025 11:52 AM EST Narrative Authorizing ProviderResult TypeResult StatusAmber Patrick QUINTERO BLOOD ORDERABLESFinal ResultPerforming OrganizationAddressCity/State/ZIP CodePhone Number [facility] [address] [place] [address], * DIABETES EYE EXAM (08/08/2023 10:17 AM EST) Narrative Authorizing ProviderResult TypeResult StatusScanning Provider ExternalHEALTH MAINTENANCEFinal ResultPerforming OrganizationAddressCity/State/ZIP CodePhone Number MANUALLY TRANSCRIBED RESULTS from Last 3 Months or Most Recently Relevant to Health Maintenance Insurance Advance Directives * Full Code (Latest Code Status on File) Date ActivatedDate InactivatedComments09/29/2024 4:48 PM09/30/2024 8:41 PM * Full Code Date ActivatedDate InactivatedComments09/29/2024 1:51 AM09/29/2024 4:30 PM Care Teams Team MemberRelationshipSpecialtyStart DateEnd Date Jose Espinosa MD [address] [place] [address] PCP - GeneralInternal Xtuxnwzd32/28/25
== END 2025-06-12 17:03 | disposition home or self-care (01) ==
PROVIDERS: PCP Family Medicine; Visit Provider Family Medicine
DX: Z00.00 Encounter for general adult medical examination without abnormal findings (principal)
CPT/HCPCS: G0328